=== PATIENT | female | born 1995 | race African-American/Black ===

== ENCOUNTER 2017-05-29 07:43 | Emergency (ER) | payer OTHER ==
[2017-05-29 09:03] LABS: INFLUENZA A AMPLIFICATION NEGATIVE (NEGATIVE); INFLUENZA B AMPLIFICATION NEGATIVE (NEGATIVE)
[2017-05-29 09:40] LABS: BASO # 0.1 10^3/uL (0.0-0.2); BASO % 0.6 % (0.0-1.0); EOS # 0.1 10^3/uL (0.0-0.50); EOS % 1.3 % (0.0-3.0); HEMATOCRIT 36.7 % (36.0-47.0); HEMOGLOBIN 12.6 g/dl (12.0-16.0); IMMATURE GRANULOCYTE # 0.1 10^3/uL (0-0); IMMATURE GRANULOCYTE % 0.7 % (0-0); LYMPH # 2.3 10^3/uL (1.5-6.5); LYMPH % 27.2 % (24.0-44.0); MEAN CORPUSCULAR HEMOGLOBIN 30.3 pg (27.0-33.0); MEAN CORPUSCULAR HGB CONC 34.3 g/dl (32.0-36.5); MEAN CORPUSCULAR VOLUME 88.2 fl (80.0-96.0); MONO # 0.6 10^3/uL (0.0-0.8); MONO % 6.5 % (0.0-5.0); NEUTROPHILS # 5.5 10^3/uL (1.8-7.7); NEUTROPHILS % 63.7 % (36.0-66.0); PLATELET COUNT, AUTOMATED 309 10^3/uL (150-450); RED BLOOD COUNT 4.16 10^6/uL (4.00-5.40); RED CELL DISTRIBUTION WIDTH 12.1 % (11.5-14.5); WHITE BLOOD COUNT 8.6 10^3/uL (4.0-10.0)
[2017-05-29 10:01] LABS: ANION GAP 7 MEQ/L (8-16); BLOOD UREA NITROGEN 12 MG/DL (7-18); CALCIUM LEVEL 8.2 MG/DL (8.5-10.1); CARBON DIOXIDE LEVEL 26 MEQ/L (21-32); CHLORIDE LEVEL 106 MEQ/L (98-107); CREATININE FOR GFR 0.74 MG/DL (0.55-1.30); GLUCOSE, FASTING 89 MG/DL (70-100); POTASSIUM SERUM 3.9 MEQ/L (3.5-5.1); SODIUM LEVEL 139 MEQ/L (136-145)
== END 2017-05-29 10:48 | disposition home or self-care (01) ==
LOC: M ED 07:43
DX: J06.9 Acute upper respiratory infection, unspecified (principal); R55 Syncope and collapse; I45.10 Unspecified right bundle-branch block; R04.0 Epistaxis; F41.0 Panic disorder [episodic paroxysmal anxiety]
CPT/HCPCS: 71046

== ENCOUNTER 2017-08-22 11:41 | Emergency (ER) | payer OTHER ==
[2017-08-22] MEDS: NS 1,000 ML IV ×2 (11:50→12:14)
[2017-08-22 12:57] LABS: BASO % 0.5 % (0.0-1.0); EOS # 0.1 10^3/uL (0.0-0.50); EOS % 1.9 % (0.0-3.0); HEMOGLOBIN 11.5 g/dl (12.0-15.5); IMMATURE GRANULOCYTE % 0.3 % (0-3.0); LYMPH # 2.8 10^3/uL (1.5-6.5); LYMPH % 38.9 % (24.0-44.0); MEAN CORPUSCULAR HEMOGLOBIN 30.8 pg (27.0-33.0); MEAN CORPUSCULAR HGB CONC 34.8 g/dl (32.0-36.5); MEAN CORPUSCULAR VOLUME 88.5 fl (80.0-96.0); MONO # 0.7 10^3/uL (0.0-0.8); MONO % 10.1 % (0.0-5.0); NEUTROPHILS # 3.5 10^3/uL (1.8-7.7); NEUTROPHILS % 48.3 % (36.0-66.0); PLATELET COUNT, AUTOMATED 215 10^3/uL (150-450); RED BLOOD COUNT 3.73 10^6/uL (4.00-5.40); RED CELL DISTRIBUTION WIDTH 12.3 % (11.5-14.5); WHITE BLOOD COUNT 7.3 10^3/uL (4.0-10.0)
[2017-08-22 13:19] LABS: CONTROL LINE HCG INT CTR LINE PRESENT; HCG, SERUM QUALITATIVE NEGATIVE (NEGATIVE)
[2017-08-22 13:24] LABS: ANION GAP 5 MEQ/L (8-16); BLOOD UREA NITROGEN 14 MG/DL (7-18); CALCIUM LEVEL 8.2 MG/DL (8.5-10.1); CARBON DIOXIDE LEVEL 26 MEQ/L (21-32); CHLORIDE LEVEL 111 MEQ/L (98-107); GLUCOSE, FASTING 95 MG/DL (70-100); POTASSIUM SERUM 3.5 MEQ/L (3.5-5.1); SODIUM LEVEL 142 MEQ/L (136-145)
[2017-08-22 13:27] LABS: LACTIC ACID SEPSIS PROTOCOL 1.3 MMOL/L (0.4-2.0)
[2017-08-22 13:58] LABS: ETHYL ALCOHOL (ETHANOL) < 0.003 % (0.000-0.010)
[2017-08-22 14:51] LABS: APPEARANCE, URINE HAZY (CLEAR); BACTERIA, URINE AUTO NEGATIVE (NEGATIVE); BILIRUBIN, URINE AUTO NEGATIVE (NEGATIVE); BLOOD, URINE BLOOD NEGATIVE (NEGATIVE); COLOR, URINE YELLOW (YELLOW); GLUCOSE, URINE (UA) AUTO NEGATIVE (NEGATIVE); KETONE, URINE AUTO NEGATIVE (NEGATIVE); LEUKOCYTE ESTERASE, URINE AUTO NEGATIVE (NEGATIVE); MUCUS, URINE SMALL (NEGATIVE); NITRITE, URINE AUTO NEGATIVE (NEGATIVE); PROTEIN, URINE AUTO NEGATIVE (NEGATIVE); RBC, URINE AUTO 1 /HPF (0-3); SPECIFIC GRAVITY URINE AUTO 1.017 (1.002-1.035); SQUAMOUS EPITHELIAL CELL UR AU 3 /HPF (0-6); UROBILINOGEN, URINE AUTO 0.2 mg/dL (0.0-2.0); WBC, URINE AUTO 0 /HPF (0-3)
[2017-08-22 14:53] LABS: AMPHETAMINES LEVEL URINE NEGATIVE (NEGATIVE); BARBITURATES URINE NEGATIVE (NEGATIVE); BENZODIAZEPINES URINE POSITIVE (NEGATIVE); CANNABINOIDS URINE NEGATIVE (NEGATIVE); COCAINE METABOLITE URINE NEGATIVE (NEGATIVE); METHADONE URINE NEGATIVE (NEGATIVE); OPIATES URINE NEGATIVE (NEGATIVE); PHENCYCLIDINE URINE NEGATIVE (NEGATIVE)
== END 2017-08-22 15:23 | disposition home or self-care (01) ==
LOC: M ED 11:41
DX: R56.9 Unspecified convulsions (principal); R55 Syncope and collapse; Z88.6 Allergy status to analgesic agent; Z88.5 Allergy status to narcotic agent
CPT/HCPCS: 70450

== ENCOUNTER 2017-09-19 01:29 | Emergency (ER) | payer OTHER ==
[2017-09-19 02:12] LABS: BASO # 0.1 10^3/uL (0.0-0.2); BASO % 0.7 % (0.0-1.0); EOS # 0.3 10^3/uL (0.0-0.50); EOS % 3.5 % (0.0-3.0); HEMATOCRIT 35.3 % (36.0-47.0); HEMOGLOBIN 12.3 g/dl (12.0-15.5); IMMATURE GRANULOCYTE % 0.3 % (0-3.0); LYMPH # 3.2 10^3/uL (1.5-6.5); LYMPH % 36.6 % (24.0-44.0); MEAN CORPUSCULAR HEMOGLOBIN 30.2 pg (27.0-33.0); MEAN CORPUSCULAR HGB CONC 34.8 g/dl (32.0-36.5); MEAN CORPUSCULAR VOLUME 86.7 fl (80.0-96.0); MONO # 0.8 10^3/uL (0.0-0.8); MONO % 8.7 % (0.0-5.0); NEUTROPHILS # 4.4 10^3/uL (1.8-7.7); NEUTROPHILS % 50.2 % (36.0-66.0); PLATELET COUNT, AUTOMATED 250 10^3/uL (150-450); RED BLOOD COUNT 4.07 10^6/uL (4.00-5.40); WHITE BLOOD COUNT 8.8 10^3/uL (4.0-10.0)
[2017-09-19 02:46] LABS: ANION GAP 5 MEQ/L (8-16); BLOOD UREA NITROGEN 14 MG/DL (7-18); CALCIUM LEVEL 8.7 MG/DL (8.5-10.1); CARBON DIOXIDE LEVEL 26 MEQ/L (21-32); CHLORIDE LEVEL 108 MEQ/L (98-107); CREATININE FOR GFR 0.87 MG/DL (0.55-1.30); FREE T4 0.95 NG/DL (0.78-1.33); GLUCOSE, FASTING 97 MG/DL (70-100); POTASSIUM SERUM 3.6 MEQ/L (3.5-5.1); SODIUM LEVEL 139 MEQ/L (136-145)
[2017-09-19 06:02] LABS: CONTROL LINE HCG INT CTR LINE PRESENT; HCG, SERUM QUALITATIVE NEGATIVE (NEGATIVE)
[2017-09-19 06:11] LABS: KETONE, URINE AUTO RFX NEGATIVE (NEGATIVE); LEUKOCYTE ESTERASE UR AUTO RFX NEGATIVE (NEGATIVE); NITRITE, URINE AUTO RFX NEGATIVE (NEGATIVE); RBC, URINE AUTO RFX 3 /HPF (0-3); SPECIFIC GRAVITY UR AUTO RFX 1.019 (1.002-1.035); SQUAM EPITHELIAL CELL UR AURFX 6 /HPF (0-6); WBC, URINE AUTO RFX 1 /HPF (0-3)
[2017-09-19 06:34] LABS: AMPHETAMINES LEVEL URINE NEGATIVE (NEGATIVE); BARBITURATES URINE NEGATIVE (NEGATIVE); BENZODIAZEPINES URINE NEGATIVE (NEGATIVE); CANNABINOIDS URINE NEGATIVE (NEGATIVE); COCAINE METABOLITE URINE NEGATIVE (NEGATIVE); METHADONE URINE NEGATIVE (NEGATIVE); OPIATES URINE NEGATIVE (NEGATIVE); PHENCYCLIDINE URINE NEGATIVE (NEGATIVE)
== END 2017-09-19 07:45 | disposition home or self-care (01) ==
LOC: M ED 01:29
DX: R51 Headache (principal); R56.9 Unspecified convulsions; Z88.5 Allergy status to narcotic agent; Z88.8 Allergy status to other drugs, medicaments and biological substances
CPT/HCPCS: 71046

== ENCOUNTER 2017-10-21 19:00 | Emergency (ER) | payer OTHER ==
[2017-10-21] MEDS: NS 1,000 ML IV (20:26)
[2017-10-21] MEDS: KETOROLAC 30 MG/ML VIAL (J1885) IV (20:35)
[2017-10-21 20:39] LABS: BASO # 0.1 10^3/uL (0.0-0.2); BASO % 0.5 % (0.0-1.0); EOS # 0.1 10^3/uL (0.0-0.50); EOS % 1.5 % (0.0-3.0); HEMATOCRIT 37.2 % (36.0-47.0); HEMOGLOBIN 13.2 g/dl (12.0-15.5); IMMATURE GRANULOCYTE % 0.4 % (0-3.0); LYMPH # 2.5 10^3/uL (1.5-6.5); LYMPH % 26.7 % (24.0-44.0); MEAN CORPUSCULAR HEMOGLOBIN 30.6 pg (27.0-33.0); MEAN CORPUSCULAR HGB CONC 35.5 g/dl (32.0-36.5); MEAN CORPUSCULAR VOLUME 86.1 fl (80.0-96.0); MONO # 0.7 10^3/uL (0.0-0.8); MONO % 7.1 % (0.0-5.0); NEUTROPHILS % 63.8 % (36.0-66.0); PLATELET COUNT, AUTOMATED 269 10^3/uL (150-450); RED BLOOD COUNT 4.32 10^6/uL (4.00-5.40); RED CELL DISTRIBUTION WIDTH 12.4 % (11.5-14.5); WHITE BLOOD COUNT 9.4 10^3/uL (4.0-10.0)
[2017-10-21 21:04] LABS: ANION GAP 6 MEQ/L (8-16); BLOOD UREA NITROGEN 12 MG/DL (7-18); CALCIUM LEVEL 8.5 MG/DL (8.5-10.1); CARBON DIOXIDE LEVEL 26 MEQ/L (21-32); CHLORIDE LEVEL 106 MEQ/L (98-107); CREATININE FOR GFR 0.84 MG/DL (0.55-1.30); GLUCOSE, FASTING 88 MG/DL (70-100); POTASSIUM SERUM 4.1 MEQ/L (3.5-5.1); SODIUM LEVEL 138 MEQ/L (136-145)
== END 2017-10-21 21:55 | disposition home or self-care (01) ==
LOC: M ED 19:00
DX: G40.909 Epilepsy, unspecified, not intractable, without status epilepticus (principal); Z79.899 Other long term (current) drug therapy; Z88.5 Allergy status to narcotic agent; Z88.6 Allergy status to analgesic agent
CPT/HCPCS: J1885

== ENCOUNTER 2017-12-20 07:29 | Emergency (ER) | payer OTHER | END 2017-12-20 09:00 | disposition home or self-care (01) | LOC: M ED 07:29 | DX: F44.5 Conversion disorder with seizures or convulsions (principal); Z76.5 Malingerer [conscious simulation]; G43.909 Migraine, unspecified, not intractable, without status migrainosus; Z79.899 Other long term (current) drug therapy; Z88.5 Allergy status to narcotic agent; Z88.8 Allergy status to other drugs, medicaments and biological substances | CPT/HCPCS: 99284 ==

== ENCOUNTER 2018-01-08 10:30 | Emergency (ER) | payer OTHER ==
[2018-01-08 12:42] LABS: HEMATOCRIT 36.6 % (36.0-47.0); HEMOGLOBIN 12.6 g/dl (12.0-15.5); MEAN CORPUSCULAR HEMOGLOBIN 30.1 pg (27.0-33.0); MEAN CORPUSCULAR HGB CONC 34.4 g/dl (32.0-36.5); MEAN CORPUSCULAR VOLUME 87.6 fl (80.0-96.0); PLATELET COUNT, AUTOMATED 269 10^3/uL (150-450); RED BLOOD COUNT 4.18 10^6/uL (4.00-5.40); RED CELL DISTRIBUTION WIDTH 12.1 % (11.5-14.5); WHITE BLOOD COUNT 5.8 10^3/uL (4.0-10.0)
[2018-01-08 13:02] LABS: BLOOD UREA NITROGEN 14 MG/DL (7-18); CALCIUM LEVEL 8.7 MG/DL (8.5-10.1); CHLORIDE LEVEL 108 MEQ/L (98-107); CREATININE FOR GFR 0.87 MG/DL (0.55-1.30); HCG, SERUM QUANTITATIVE < 1.0 MIU/ML; POTASSIUM SERUM 3.8 MEQ/L (3.5-5.1); SODIUM LEVEL 140 MEQ/L (136-145)
[2018-01-08 13:05] LABS: D-DIMER QUANT < 270.0 ng/ml (<500)
[2018-01-08 15:14] LABS: CARBON DIOXIDE LEVEL 23 MEQ/L (21-32)
[2018-01-08 15:15] LABS: ANION GAP 9 MEQ/L (8-16)
[2018-01-08 17:32] LABS: GLUCOSE, FASTING 88 MG/DL (70-100)
[2018-01-09 14:12] LABS: TOPIRAMATE LEVEL None Detected ug/mL (2.0-25.0)
== END 2018-01-08 15:24 | disposition home or self-care (01) ==
LOC: M ED 10:30
DX: R07.89 Other chest pain (principal); R25.8 Other abnormal involuntary movements; R56.9 Unspecified convulsions; G43.909 Migraine, unspecified, not intractable, without status migrainosus; Z79.899 Other long term (current) drug therapy
CPT/HCPCS: 71046

== ENCOUNTER 2018-02-13 12:39 | Emergency (ER) | payer OTHER ==
[2018-02-13 13:53] LABS: BASO # 0.1 10^3/uL (0.0-0.2); BASO % 0.6 % (0.0-1.0); EOS # 0.1 10^3/uL (0.0-0.50); EOS % 1.1 % (0.0-3.0); HEMATOCRIT 35.7 % (36.0-47.0); HEMOGLOBIN 12.3 g/dl (12.0-15.5); IMMATURE GRANULOCYTE % 0.4 % (0-3.0); LYMPH # 2.9 10^3/uL (1.5-6.5); LYMPH % 34.5 % (24.0-44.0); MEAN CORPUSCULAR HEMOGLOBIN 30.9 pg (27.0-33.0); MEAN CORPUSCULAR HGB CONC 34.5 g/dl (32.0-36.5); MEAN CORPUSCULAR VOLUME 89.7 fl (80.0-96.0); MONO # 0.8 10^3/uL (0.0-0.8); MONO % 10.1 % (0.0-5.0); NEUTROPHILS # 4.5 10^3/uL (1.8-7.7); NEUTROPHILS % 53.3 % (36.0-66.0); PLATELET COUNT, AUTOMATED 239 10^3/uL (150-450); RED BLOOD COUNT 3.98 10^6/uL (4.00-5.40); RED CELL DISTRIBUTION WIDTH 12.2 % (11.5-14.5); WHITE BLOOD COUNT 8.3 10^3/uL (4.0-10.0)
[2018-02-13] MEDS: METOCLOPRAMIDE INJ 10MG/2ML VIAL (J2765) IV (13:59)
[2018-02-13] MEDS: NS 1,000 ML IV (13:59)
[2018-02-13] MEDS: diphenhydrAMINE INJ 50MG/ML VIAL (J1200) IV (13:59)
[2018-02-13 14:32] LABS: CONTROL LINE HCG INT CTR LINE PRESENT; HCG, SERUM QUALITATIVE NEGATIVE (NEGATIVE)
[2018-02-13 14:40] LABS: ANION GAP 8 MEQ/L (8-16); BLOOD UREA NITROGEN 11 MG/DL (7-18); CALCIUM LEVEL 6.1 MG/DL (8.5-10.1); CARBON DIOXIDE LEVEL 21 MEQ/L (21-32); CHLORIDE LEVEL 118 MEQ/L (98-107); CREATININE FOR GFR 0.55 MG/DL (0.55-1.30); GLUCOSE, FASTING 60 MG/DL (70-100); POTASSIUM SERUM 2.9 MEQ/L (3.5-5.1); SODIUM LEVEL 147 MEQ/L (136-145); THYROID STIMULATING HORMONE 0.692 uIU/ML (0.463-3.98)
[2018-02-13 14:42] LABS: D-DIMER QUANT < 270.0 ng/ml (<500)
[2018-02-13] MEDS: POTASSIUM CHLORIDE 10 MEQ SR TABLET PO (14:50)
[2018-02-13 15:53] LABS: IONIZED CALCIUM 4.4 MG/DL (4.5-5.3)
[2018-02-13 16:19] LABS: ANION GAP 8 MEQ/L (8-16); BLOOD UREA NITROGEN 13 MG/DL (7-18); CALCIUM LEVEL 8.5 MG/DL (8.5-10.1); CARBON DIOXIDE LEVEL 24 MEQ/L (21-32); CHLORIDE LEVEL 108 MEQ/L (98-107); CREATININE FOR GFR 0.82 MG/DL (0.55-1.30); GLUCOSE, FASTING 73 MG/DL (70-100); POTASSIUM SERUM 3.7 MEQ/L (3.5-5.1); SODIUM LEVEL 140 MEQ/L (136-145)
[2018-02-17 16:17] LABS: METANEPHRINE PLASMA 45 pg/mL (0-62); NORMETANEPHRINE PLASMA 114 pg/mL (0-145)
== END 2018-02-13 17:29 | disposition home or self-care (01) ==
LOC: M ED 12:39
DX: R55 Syncope and collapse (principal); R07.9 Chest pain, unspecified; R51 Headache; I49.9 Cardiac arrhythmia, unspecified; G43.909 Migraine, unspecified, not intractable, without status migrainosus; R56.9 Unspecified convulsions; Z88.6 Allergy status to analgesic agent; Z88.5 Allergy status to narcotic agent; Z79.899 Other long term (current) drug therapy; Z79.3 Long term (current) use of hormonal contraceptives
CPT/HCPCS: J1200

== ENCOUNTER 2018-05-28 11:07 | Emergency (ER) | payer OTHER ==
[~2018-05-28] VITALS: Ht 170.2 cm; Wt 70.0 kg
[~2018-05-28 11:07] MED LIST: APTI1TAB2 PO; CYCL10TA; FLON1SPR; IBUP-1114 PO; MAXA10TA15 SL; TOPI50TA9 PO; [UNRECOGNIZED DRUG - CODE]
[2018-05-28] MEDS ORDERED: HYDR1CAP25 (11:24)
[2018-05-28] MEDS ORDERED: ZONI25CA2 (11:24)
[2018-05-28] MEDS ORDERED: FLUO20CA19 (11:24)
[2018-05-28] MEDS ORDERED: ASPI81CH30 (11:24)
[2018-05-28 11:49] LABS: BASO # 0.1 10^3/uL (0.0-0.2); BASO % 0.8 % (0.0-1.0); EOS # 0.2 10^3/uL (0.0-0.50); EOS % 3.6 % (0.0-3.0); HEMATOCRIT 37.1 % (36.0-47.0); HEMOGLOBIN 12.6 g/dl (12.0-15.5); LYMPH # 2.3 10^3/uL (1.5-6.5); LYMPH % 37.1 % (24.0-44.0); MEAN CORPUSCULAR HEMOGLOBIN 30.7 pg (27.0-33.0); MEAN CORPUSCULAR VOLUME 90.5 fl (80.0-96.0); MONO # 0.6 10^3/uL (0.0-0.8); MONO % 9.7 % (0.0-5.0); NEUTROPHILS % 48.3 % (36.0-66.0); PLATELET COUNT, AUTOMATED 256 10^3/uL (150-450); WHITE BLOOD COUNT 6.2 10^3/uL (4.0-10.0)
[2018-05-28 12:11] LABS: BLOOD UREA NITROGEN 13 MG/DL (7-18); CALCIUM LEVEL 8.7 MG/DL (8.5-10.1); CARBON DIOXIDE LEVEL 26 MEQ/L (21-32); CHLORIDE LEVEL 108 MEQ/L (98-107); CREATININE FOR GFR 1.04 MG/DL (0.55-1.30); GLOMERULAR FILTRATION RATE > 60.0 (>60); GLUCOSE, FASTING 81 MG/DL (70-100); POTASSIUM SERUM 3.9 MEQ/L (3.5-5.1); SODIUM LEVEL 142 MEQ/L (136-145)
[2018-05-28 12:12] LABS: HCG, SERUM QUALITATIVE NEGATIVE (NEGATIVE)
[2018-05-28] MEDS ORDERED: NS 1,000 ML IV ONE (13:15)
[2018-05-28 15:58] VITALS: BP 132/62
--- NOTE | 2018-05-29 20:58 | ECGEPIP ---
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
[2018-05-31 08:07] LABS: TOPIRAMATE LEVEL None Detected ug/mL (2.0-25.0)
== END 2018-05-28 16:00 | disposition home or self-care (01) ==
LOC: EDBD 11:07 → M ED 11:07
DX: R56.9 Unspecified convulsions (principal); Z79.82 Long term (current) use of aspirin; Z79.899 Other long term (current) drug therapy; Z88.6 Allergy status to analgesic agent; Z88.5 Allergy status to narcotic agent

== ENCOUNTER 2018-06-08 22:32 | Emergency (ER) | payer OTHER ==
[~2018-06-08] VITALS: Ht 175.3 cm; Wt 70.5 kg
[~2018-06-08 22:32] MED LIST changes: +ASPI81CH30; +FLUO20CA19; +HYDR1CAP25; +ZONI25CA2
[2018-06-08 23:08] LABS: BASO # 0.1 10^3/uL (0.0-0.2); BASO % 0.7 % (0.0-1.0); EOS # 0.3 10^3/uL (0.0-0.50); EOS % 3.1 % (0.0-3.0); HEMATOCRIT 37.3 % (36.0-47.0); HEMOGLOBIN 12.7 g/dl (12.0-15.5); LYMPH # 2.8 10^3/uL (1.5-6.5); MEAN CORPUSCULAR HEMOGLOBIN 30.4 pg (27.0-33.0); MEAN CORPUSCULAR VOLUME 89.2 fl (80.0-96.0); MONO # 1.1 10^3/uL (0.0-0.8); MONO % 10.9 % (0.0-5.0); NEUTROPHILS # 5.5 10^3/uL (1.8-7.7); NEUTROPHILS % 55.9 % (36.0-66.0); PLATELET COUNT, AUTOMATED 336 10^3/uL (150-450); RED BLOOD COUNT 4.18 10^6/uL (4.00-5.40); WHITE BLOOD COUNT 9.7 10^3/uL (4.0-10.0)
[2018-06-08 23:30] LABS: ALBUMIN 3.6 GM/DL (3.2-5.2); ALT/SGPT 23 U/L (12-78); BILIRUBIN,TOTAL 0.2 MG/DL (0.2-1.0); BLOOD UREA NITROGEN 10 MG/DL (7-18); C REACTIVE PROTEIN QUANTITATIV 2.64 MG/DL (0.00-0.30); CALCIUM LEVEL 8.5 MG/DL (8.5-10.1); CARBON DIOXIDE LEVEL 25 MEQ/L (21-32); CHLORIDE LEVEL 107 MEQ/L (98-107); CREATININE FOR GFR 0.72 MG/DL (0.55-1.30); GLOMERULAR FILTRATION RATE > 60.0 (>60); GLUCOSE, FASTING 91 MG/DL (70-100); LIPASE 99 U/L (73-393); POTASSIUM SERUM 3.8 MEQ/L (3.5-5.1); SODIUM LEVEL 137 MEQ/L (136-145); TOTAL PROTEIN 7.9 GM/DL (6.4-8.2)
--- NOTE | 2018-06-08 23:42 | REPVR ---
EXAM: US Abdomen Limited, Right Upper Quadrant EXAM DATE/TIME: 06/08/2018 11:18 PM CLINICAL HISTORY: 23 years old, female; Pain; Abdominal pain; Epigastric; Additional info: Ruq pain TECHNIQUE: Real-time ultrasound of the abdomen with image documentation. Examination was focused on the right upper quadrant. COMPARISON: No relevant prior studies available. FINDINGS: Liver: Normal. No masses. Gallbladder: Contracted gallbladder with positive Xiong sign. No calculi demonstrated. Common bile duct: Common bile duct measures 1.7 mm. Pancreas: Visualized pancreas is unremarkable. Right kidney: Right kidney measures 10.9 x 5.2 x 4.2 cm. IMPRESSION: Contracted gallbladder with positive Xiong sign. No calculi demonstrated. Electronically signed by: James Michel On 06/08/2018 23:42:11 PM
[2018-06-08 23:46] LABS: APPEARANCE, URINE CLOUDY (CLEAR); BACTERIA, URINE AUTO 1+ (NEGATIVE); BILIRUBIN, URINE AUTO NEGATIVE (NEGATIVE); BLOOD, URINE BLOOD NEGATIVE (NEGATIVE); COLOR, URINE YELLOW (YELLOW); GLUCOSE, URINE (UA) AUTO NEGATIVE (NEGATIVE); KETONE, URINE AUTO NEGATIVE (NEGATIVE); LEUKOCYTE ESTERASE, URINE AUTO 3+ (NEGATIVE); MUCUS, URINE SMALL (NEGATIVE); NITRITE, URINE AUTO NEGATIVE (NEGATIVE); PROTEIN, URINE AUTO NEGATIVE (NEGATIVE); RBC, URINE AUTO 58 /HPF (0-3); SPECIFIC GRAVITY URINE AUTO 1.019 (1.002-1.035); SQUAMOUS EPITHELIAL CELL UR AU 37 /HPF (0-6); WBC, URINE AUTO 115 /HPF (0-3)
[2018-06-08] MEDS ORDERED: MACR100C43 PO (23:58)
[2018-06-08] MEDS ORDERED: KETO10TAB PO (23:58)
[2018-06-09] MEDS ORDERED: NITROFURANTOIN (MACROBID) 100 MG CAP PO ONE
[2018-06-09] MEDS ORDERED: KETOROLAC 30 MG/ML VIAL (J1885) IV ONE
[2018-06-09 00:12] VITALS: BP 119/61
== END 2018-06-09 00:21 | disposition home or self-care (01) ==
LOC: M ED 22:32
DX: N39.0 Urinary tract infection, site not specified (principal); R10.11 Right upper quadrant pain; R56.9 Unspecified convulsions; F32.9 Major depressive disorder, single episode, unspecified; Z79.82 Long term (current) use of aspirin; Z79.899 Other long term (current) drug therapy; Z88.8 Allergy status to other drugs, medicaments and biological substances; Z88.5 Allergy status to narcotic agent
CPT/HCPCS: 76705; 80053; 81001; 81025; 83690; 85025; 86140; 96374; 99284; J1885

== ENCOUNTER → 2018-06-27 | Outpatient (CLI) | payer OTHER ==
[~2018-06-27] MED LIST changes: +DOXY100C37 PO; +FLAG500T PO; -HYDR1CAP25; +HYDR1CAP25 PO; +KETO10TAB PO; +MACR100C43 PO; +PRAZ2CAP; +TRAZ-160 PO
--- NOTE | 2018-06-27 15:28 | REP ---
Focused left breast sonography: History: 23-year-old female with a 1.5 cm regular, firm, mobile mass noted at 3 o'clock in the left breast. No comparison imaging. Sonographic findings: The left breast is scanned at approximately 3 o'clock position in the area of patient's palpable abnormality. There is a solid macrolobulated hypoechoic nodule with somewhat heterogeneous echotexture and internal Doppler hyperemic flow. There are small cystic areas and possible tiny calcifications within the lesion. The lesion measures 21 x 20 x 20 mm. It is located 7.8 cm from the nipple. On several images, it appears taller than wide. There is enhanced through transmission. No acoustic shadowing. There is heterogeneous fibroglandular background echotexture. This may be a fibroadenoma however some of its features are suspicious. The patient's estimated lifetime breast cancer risk assessment score is 12.3% by Tyrer-Cuzick model. Impression: BI-RADS category 4 suspicious left breast imaging. Solid mass noted at the site of the palpable lump in the left breast. Histologic sampling is recommended. This could be accomplished with ultrasound guidance by ultrasound guided needle biopsy if desired. Alternatively, a palpation directed needle biopsy could be performed. Electronically Signed by Henri Arnett MD 06/27/2018 04:46 P
== END ==
LOC: M RAD 13:25
PROVIDERS: ATTEND Obstetrics & Gynecology
DX: N63.0 Unspecified lump in unspecified breast (principal)

== ENCOUNTER 2018-06-29 17:45 | Emergency (ER) | payer OTHER ==
[~2018-06-29] VITALS: Ht 170.2 cm; Wt 70.5 kg
[~2018-06-29 17:45] MED LIST changes: -DOXY100C37 PO; -FLAG500T PO; -PRAZ2CAP; -TRAZ-160 PO
[2018-06-29] MEDS ORDERED: NS 1,000 ML IV ONE ×2 (18:00→19:00)
[2018-06-29] MEDS: MORPHINE 2 MG/ML 1ML SYRINGE (J2270) IV PRN ×2 (18:17→19:43)
[2018-06-29 18:19] LABS: BASO # 0.1 10^3/uL (0.0-0.2); BASO % 0.5 % (0.0-1.0); EOS # 0.2 10^3/uL (0.0-0.50); EOS % 1.5 % (0.0-3.0); HEMATOCRIT 32.8 % (36.0-47.0); HEMOGLOBIN 11.3 g/dl (12.0-15.5); LYMPH # 3.4 10^3/uL (1.5-6.5); LYMPH % 30.2 % (24.0-44.0); MEAN CORPUSCULAR HEMOGLOBIN 29.7 pg (27.0-33.0); MEAN CORPUSCULAR HGB CONC 34.5 g/dl (32.0-36.5); MEAN CORPUSCULAR VOLUME 86.3 fl (80.0-96.0); MONO % 8.4 % (0.0-5.0); NEUTROPHILS # 6.6 10^3/uL (1.8-7.7); NEUTROPHILS % 58.7 % (36.0-66.0); PLATELET COUNT, AUTOMATED 463 10^3/uL (150-450); WHITE BLOOD COUNT 11.3 10^3/uL (4.0-10.0)
[2018-06-29 18:33] LABS: INR 1.06; PARTIAL THROMBOPLASTIN TIME 21.4 SECONDS (25.4-37.6); PROTHROMBIN TIME 13.9 SECONDS (12.1-14.4)
[2018-06-29] MEDS ORDERED: TRAZ-160 PO (18:41)
[2018-06-29] MEDS ORDERED: PRAZ2CAP (18:41)
[2018-06-29 18:42] LABS: HCG, SERUM QUALITATIVE NEGATIVE (NEGATIVE)
[2018-06-29 18:43] LABS: ALBUMIN 3.6 GM/DL (3.2-5.2); ALT/SGPT 22 U/L (12-78); BILIRUBIN,DIRECT < 0.1 MG/DL (0.0-0.2); BILIRUBIN,TOTAL 0.3 MG/DL (0.2-1.0); BLOOD UREA NITROGEN 12 MG/DL (7-18); CARBON DIOXIDE LEVEL 25 MEQ/L (21-32); CHLORIDE LEVEL 102 MEQ/L (98-107); CREATININE FOR GFR 0.93 MG/DL (0.55-1.30); GLOMERULAR FILTRATION RATE > 60.0 (>60); GLUCOSE, FASTING 97 MG/DL (70-100); LIPASE 73 U/L (73-393); POTASSIUM SERUM 3.5 MEQ/L (3.5-5.1); SODIUM LEVEL 137 MEQ/L (136-145); TOTAL PROTEIN 8.5 GM/DL (6.4-8.2)
[2018-06-29] MEDS ORDERED: ISOVUE-370 76% 100ML VIAL (Q9967) As Ordered ONE (18:50)
--- NOTE | 2018-06-29 19:17 | REP ---
Clinical: Acute abdominal pain. Technique: Axial contrast enhanced images from the lung bases to the pubic symphysis using 100 ml Isovue 370 intravenous contrast material with coronal and sagittal re-formations. Findings: Lung bases are clear. Visualized heart and pericardium normal. Liver, spleen, pancreas, gallbladder, bilateral adrenal glands and kidneys are normal. The enteric system is without obstruction or acute inflammatory process. Normal terminal ileum and appendix are identified in the right lower quadrant. Pelvis demonstrates normal bladder and uterus. Complex cystic changes to the bilateral adnexa (left greater than right) likely physiologic. No ascites. No free air. No adenopathy. Abdominal aorta and vasculature without aneurysm or dissection. Musculoskeletal structures are intact. Impression: 1. Complex cystic changes to the bilateral adnexa (left greater than right) is likely physiologic. 2. No further acute abdominopelvic pathology appreciated. Specifically, no ascites, focal inflammatory stranding, or adenopathy. Electronically Signed by Buzz Reagan MD 06/29/2018 07:09 P
[2018-06-29 22:00] VITALS: BP 127/72
--- NOTE | 2018-06-30 07:38 | ED PDOC ---
Post-Departure Follow-Up ft christiano chahal faxed formal report of ct abd/p for fu Becki Baird MD Jun 30, 2018 07:38
== END 2018-06-29 22:00 | disposition home or self-care (01) ==
LOC: EDBD 17:45 → EDSEX 17:45 → M ED 17:45
DX: G40.919 Epilepsy, unspecified, intractable, without status epilepticus (principal); R10.84 Generalized abdominal pain; F33.9 Major depressive disorder, recurrent, unspecified; Z79.899 Other long term (current) drug therapy; Z88.5 Allergy status to narcotic agent; Z88.8 Allergy status to other drugs, medicaments and biological substances
CPT/HCPCS: 74177; 80048; 80076; 83605; 83690; 84703; 85025; 85610; 85730; 93041; 96361; 96374; 96376; 99285; J2270; Q9967

== ENCOUNTER 2018-07-01 12:02 | Emergency (ER) | payer OTHER ==
[~2018-07-01] VITALS: Ht 170.2 cm; Wt 70.5 kg
[~2018-07-01 12:02] MED LIST changes: +PRAZ2CAP; +TRAZ-160 PO
[2018-07-01] MEDS ORDERED: KETOROLAC 30 MG/ML VIAL (J1885) IV ONE (12:45)
[2018-07-01] MEDS ORDERED: ONDANSETRON 4MG/2ML VIAL (J2405) IV ONE (12:45)
[2018-07-01 13:24] LABS: BASO % 0.4 % (0.0-1.0); EOS # 0.1 10^3/uL (0.0-0.50); EOS % 1.2 % (0.0-3.0); HEMATOCRIT 33.3 % (36.0-47.0); HEMOGLOBIN 11.1 g/dl (12.0-15.5); LYMPH % 19.8 % (24.0-44.0); MEAN CORPUSCULAR HEMOGLOBIN 29.1 pg (27.0-33.0); MEAN CORPUSCULAR HGB CONC 33.3 g/dl (32.0-36.5); MEAN CORPUSCULAR VOLUME 87.2 fl (80.0-96.0); MONO # 0.8 10^3/uL (0.0-0.8); MONO % 7.9 % (0.0-5.0); NEUTROPHILS % 70.3 % (36.0-66.0); PLATELET COUNT, AUTOMATED 446 10^3/uL (150-450); RED BLOOD COUNT 3.82 10^6/uL (4.00-5.40)
[2018-07-01 13:42] LABS: HCG, SERUM QUALITATIVE NEGATIVE (NEGATIVE)
[2018-07-01 13:50] LABS: BLOOD UREA NITROGEN 9 MG/DL (7-18); CALCIUM LEVEL 8.7 MG/DL (8.5-10.1); CARBON DIOXIDE LEVEL 27 MEQ/L (21-32); CHLORIDE LEVEL 104 MEQ/L (98-107); CREATININE FOR GFR 0.81 MG/DL (0.55-1.30); GLOMERULAR FILTRATION RATE > 60.0 (>60); GLUCOSE, FASTING 93 MG/DL (70-100); POTASSIUM SERUM 3.7 MEQ/L (3.5-5.1); SODIUM LEVEL 136 MEQ/L (136-145)
[2018-07-01] MEDS ORDERED: MORPHINE 4 MG/ML 1ML VIAL/SYRINGE (J2270) IV ONE (14:00)
--- NOTE | 2018-07-01 15:52 | REP ---
Clinical: Pelvic pain . Technique: Transabdominal pelvic ultrasound followed by transvaginal examination for better evaluation of the endometrium and adnexa with color Doppler evaluation of the ovaries. Findings: Bladder is unremarkable and measures 7.1 x 5.5 x 7.8 cm . Heterogeneous anteverted uterus measures 8.1 x 4.0 x 5.4 cm . The endometrial complex measures 8.9 mm thickness. No discrete uterine or endometrial abnormalities are appreciated. The bilateral ovaries are grossly normal in appearance and vascularity without torsion. The right ovary measures 3.3 x 3.2 x 4.2 cm; RI 0.71. The left ovary measures 3.3 x 2.0 x 3.2 cm; RI 0.64. The irregular complex vascular cystic and solid areas are identified along the bilateral adnexa measuring 4.2 x 4.2 x 4.7 cm on the right and 5.6 x 4.3 x 4.7 cm on the left suggesting the possibility of bilateral pyosalpinx and tubal ovarian abscess. Impression: 1. Normal uterus. 2. Complex hyperemic cystic and solid lesions in the bilateral adnexa concerning for bilateral pyosalpinx and tubal ovarian abscess. Electronically Signed by Buzz Reagan MD 07/01/2018 03:44 P
[2018-07-01] MEDS ORDERED: DOXY100C37 PO (17:38)
[2018-07-01] MEDS ORDERED: FLAG500T PO (17:38)
[2018-07-01] MEDS ORDERED: cefTRIAXone SOD 250 MG VIAL (J0696) IM ONE (17:45)
[2018-07-01] MEDS ORDERED: LIDOCAINE 1% SDV 5 ML VIAL DILUENT ONE (17:45)
[2018-07-01 18:27] VITALS: BP 131/59
[2018-07-01 18:37] LABS: CHLAMYDIA DNA AMPLIFICATION POSITIVE (NEGATIVE); GC DNA AMPLIFICATION NEGATIVE (NEGATIVE)
--- NOTE | 2018-07-03 17:00 | ED PDOC ---
Post-Departure Follow-Up ft drum ob and ft drum fp faxed formal report of pelvic us for fu Becki Baird MD Jul 03, 2018 17:00
== END 2018-07-01 18:50 | disposition home or self-care (01) ==
LOC: M ED 12:02
DX: N73.9 Female pelvic inflammatory disease, unspecified (principal); Z87.42 Personal history of other diseases of the female genital tract; Z87.19 Personal history of other diseases of the digestive system; Z86.69 Personal history of other diseases of the nervous system and sense organs; Z86.19 Personal history of other infectious and parasitic diseases; Z88.8 Allergy status to other drugs, medicaments and biological substances; Z88.5 Allergy status to narcotic agent
CPT/HCPCS: 76830; 76856; 80048; 81025; 84703; 85025; 87210; 87491; 87591; 93976; 96372; 96374; 96375; 99284; J0696; J1885; J2270; J2405

== ENCOUNTER 2018-12-10 16:25 | Emergency (ER) | payer OTHER ==
[~2018-12-10] VITALS: Ht 167.6 cm; Wt 82.3 kg
[~2018-12-10 16:25] MED LIST changes: -ASPI81CH30; +DOXY100C37 PO; +FLAG500T PO; +GOOD81CH2; -TRAZ-160 PO; +TRAZ-252 PO
--- NOTE | 2018-12-10 21:15 | REPVR ---
EXAM: US Pelvis Complete, Transabdominal and US Pelvis, Transvaginal and US Duplex Artery and Vein, Ovaries, Complete EXAM DATE/TIME: 12/10/2018 7:33 PM CLINICAL HISTORY: 23 years old, female; Pelvic pain; Additional info: Pelvic pain, HX pid TECHNIQUE: Imaging protocol: Real-time transabdominal and transvaginal pelvic ultrasound (complete) with image documentation. Transvaginal imaging was used for better evaluation of the endometrium and adnexa. Real-time duplex ultrasound scan of the arterial and venous flow of the ovaries with B-mode, color Doppler flow and spectral waveform analysis. COMPARISON: US PELVIC NON-OB COMPLETE 07/01/2018 2:45 PM FINDINGS: Uterus/cervix: Uterus is normal. The uterus measures 6.8 x 4.6 x 5.2 cm Endometrial stripe is normal, and measures 0.5 cm in thickness. Right adnexa: The right ovary measures 2.6 x 2.3 x 3.8 cm. No mass. Normal color flow and spectral doppler waveforms. No torsion. Left adnexa: The left ovary measures 2.5 x 4.2 x 1.9 cm. No mass. Normal color flow and spectral doppler waveforms. No torsion. Free fluid: Trace fluid in the cul-de-sac. Bladder: Normal. IMPRESSION: No acute findings. No torsion. Electronically signed by: Narcisa Henderson On 12/10/2018 21:15:17 PM
[2018-12-10 21:36] VITALS: BP 130/70
[2018-12-10] MEDS ORDERED: ACETAMINOPHEN 500 MG TAB PO ONE (21:45)
== END 2018-12-10 21:49 | disposition home or self-care (01) ==
LOC: EDBD 16:25 → M ED 16:25
DX: F32.9 Major depressive disorder, single episode, unspecified (principal); F41.9 Anxiety disorder, unspecified; Z79.899 Other long term (current) drug therapy; Z88.5 Allergy status to narcotic agent; Z88.6 Allergy status to analgesic agent; Z91.010 Allergy to peanuts

== ENCOUNTER 2018-12-14 11:11 | Emergency (ER) | payer OTHER ==
[~2018-12-14] VITALS: Ht 170.2 cm; Wt 72.7 kg
[2018-12-14 12:17] LABS: HEMATOCRIT 37.1 % (36.0-47.0); HEMOGLOBIN 12.7 g/dl (12.0-15.5); MEAN CORPUSCULAR HEMOGLOBIN 30.7 pg (27.0-33.0); MEAN CORPUSCULAR HGB CONC 34.2 g/dl (32.0-36.5); MEAN CORPUSCULAR VOLUME 89.6 fl (80.0-96.0); PLATELET COUNT, AUTOMATED 251 10^3/uL (150-450); RED BLOOD COUNT 4.14 10^6/uL (4.00-5.40); WHITE BLOOD COUNT 6.5 10^3/uL (4.0-10.0)
[2018-12-14 12:38] LABS: AMPHETAMINES LEVEL URINE NEGATIVE (NEGATIVE); BARBITURATES URINE NEGATIVE (NEGATIVE); BENZODIAZEPINES URINE NEGATIVE (NEGATIVE); CANNABINOIDS URINE NEGATIVE (NEGATIVE); COCAINE METABOLITE URINE NEGATIVE (NEGATIVE); METHADONE URINE NEGATIVE (NEGATIVE); OPIATES URINE NEGATIVE (NEGATIVE); PHENCYCLIDINE URINE NEGATIVE (NEGATIVE)
[2018-12-14 12:53] LABS: ACETAMINOPHEN LEVEL < 2.0 UG/ML (10.0-30.0); ALBUMIN 3.7 GM/DL (3.2-5.2); ALT/SGPT 66 U/L (12-78); BILIRUBIN,DIRECT < 0.1 MG/DL (0.0-0.2); BILIRUBIN,TOTAL 0.2 MG/DL (0.2-1.0); BLOOD UREA NITROGEN 16 MG/DL (7-18); CALCIUM LEVEL 8.7 MG/DL (8.5-10.1); CARBON DIOXIDE LEVEL 27 MEQ/L (21-32); CHLORIDE LEVEL 107 MEQ/L (98-107); CREATININE FOR GFR 0.89 MG/DL (0.55-1.30); ETHYL ALCOHOL (ETHANOL) < 0.003 % (0.000-0.010); GLOMERULAR FILTRATION RATE > 60.0 (>60); GLUCOSE, FASTING 102 MG/DL (70-100); SALICYLATE LEVEL < 1.7 MG/DL (5.0-30.0); SODIUM LEVEL 140 MEQ/L (136-145)
[2018-12-14 12:56] LABS: HCG, SERUM QUALITATIVE NEGATIVE (NEGATIVE)
[2018-12-14 13:55] VITALS: BP 127/62
== END 2018-12-14 13:58 | disposition home or self-care (01) ==
LOC: M ED 11:11 → EDBD 11:11 → M ED 13:58
DX: F33.9 Major depressive disorder, recurrent, unspecified (principal); F43.10 Post-traumatic stress disorder, unspecified; Z91.010 Allergy to peanuts; Z88.5 Allergy status to narcotic agent; Z88.8 Allergy status to other drugs, medicaments and biological substances
CPT/HCPCS: 36415; 80048; 80076; 80307; 84443; 84703; 85027; 99284; G0480

== ENCOUNTER 2019-01-11 10:43 | Emergency (ER) | payer OTHER ==
[~2019-01-11] VITALS: Ht 167.6 cm; Wt 70.5 kg
[2019-01-11] MEDS ORDERED: IBUP200T45 PO (10:52)
--- NOTE | 2019-01-11 14:46 | REP ---
Left rib series: Five views including PA chest. History: Trauma. Comparison study: January 08, 2018. Findings: PA chest radiograph shows no evidence of infiltrate or atelectasis or effusion. Mediastinum is not widened. There is no evidence of pneumothorax. Lung montesinos are clear. Multiple views of the left rib cage show no visible rib fracture or bony destructive lesion. Impression: Negative left rib radiographs. Electronically Signed by Henri Arnett MD 01/11/2019 02:38 P
[2019-01-11 14:48] VITALS: BP 138/71
--- NOTE | 2019-01-12 05:45 | ECGEPIP ---
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
== END 2019-01-11 14:49 | disposition home or self-care (01) ==
LOC: M ED 10:43 → EDBD 10:43 → M ED 14:49
DX: R07.89 Other chest pain (principal); Z91.010 Allergy to peanuts; Z86.69 Personal history of other diseases of the nervous system and sense organs; F43.10 Post-traumatic stress disorder, unspecified

== ENCOUNTER 2019-11-09 16:27 | Emergency (ER) | payer OTHER ==
[~2019-11-09] VITALS: Ht 167.6 cm; Wt 84.7 kg
[~2019-11-09 16:27] MED LIST changes: +CYCL-707; -CYCL10TA; -FLUO20CA19; +FLUO20CA22; +IBUP200T45 PO; +ZONI25CA13; -ZONI25CA2
[2019-11-09] MEDS ORDERED: FLUO20CA22 (16:40)
[2019-11-09] MEDS ORDERED: CIPR500T3 (16:40)
[2019-11-09 16:48] LABS: BASO % 0.6 % (0.0-1.0); EOS # 0.2 10^3/uL (0.0-0.5); EOS % 2.6 % (0.0-3.0); HEMATOCRIT 36.7 % (36.0-47.0); HEMOGLOBIN 12.5 g/dl (12.0-15.5); LYMPH # 2.5 10^3/uL (1.5-5.0); LYMPH % 35.1 % (24.0-44.0); MEAN CORPUSCULAR HGB CONC 34.1 g/dl (32.0-36.5); MEAN CORPUSCULAR VOLUME 88.2 fl (80.0-96.0); MONO # 0.6 10^3/uL (0.0-0.8); MONO % 8.3 % (0.0-5.0); NEUTROPHILS # 3.8 10^3/uL (1.5-8.5); PLATELET COUNT, AUTOMATED 248 10^3/uL (150-450); RED BLOOD COUNT 4.16 10^6/uL (4.00-5.40); WHITE BLOOD COUNT 7.2 10^3/uL (4.0-10.0)
[2019-11-09 17:00] VITALS: BP 137/66
--- NOTE | 2019-11-09 18:52 | ECGEPIP ---
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
== END 2019-11-09 18:00 | disposition home or self-care (01) ==
LOC: M ED 16:27 → EDBD 16:27 → M ED 18:00
DX: F44.5 Conversion disorder with seizures or convulsions (principal); F43.0 Acute stress reaction; Z79.83 Long term (current) use of bisphosphonates; Z79.899 Other long term (current) drug therapy; Z91.010 Allergy to peanuts

== ENCOUNTER → 2019-12-27 | Outpatient (CLI) | payer OTHER ==
[~2019-12-27] MED LIST changes: +CIPR500T3; +ISOVUE-370 76% 100ML VIAL As Ordered ONE
--- NOTE | 2020-01-13 13:39 | RO ---
DATE OF OPERATION: 12/27/2019 PREOPERATIVE DIAGNOSIS: Infertility. POSTOPERATIVE DIAGNOSIS: Infertility PROCEDURE: Hysterosalpingogram. SURGEON: Puneet Haley MD MATERIAL STRESS TESTER: ANESTHESIA: DESCRIPTION OF OPERATION: After adequate discussion and counseling about the risks and benefits of hysterosalpingogram, patient consented to the procedure. She had testing for hCG, which was negative, and she had prophylactic antibiotics because of previous pelvic infection. While on the table in the lithotomy position, sterile speculum examination was placed. Cervical os appeared retroverted, retroflexed uterus. The hysterosalpingogram catheter was placed through the endocervix after washing off the cervix and vagina with Hibiclens. With radiology in the room, dye was instituted into the uterus. The cavity seemed to be well formed. Both tubes dilated to the fimbriated end. The left tube spilled quite easily. The right tube there was stalling of the dye at the end. Could not actually establish whether there was spillage of dye at the right tube. Patient had minimal discomfort. The catheter and speculum were removed, and the patient will come to the office for discussion regarding further options. ANDRY
--- NOTE | 2020-01-27 07:57 | REP ---
HYSTEROSALPINGOGRAM HISTORY: Infertility. PROCEDURE: Endometrium is cannulated and contrast is injected by the referring mechanical estimator. Fluoroscopic guidance and spot filming is provided. Fluoroscopy time is 0.6 minutes. FINDINGS: Sequential spot filming during the contrast injection demonstrates a normal shaped homogeneous endometrial cavity. The isthmic and ampullary segment of the left fallopian tube opacifies quickly and there is documented peritoneal spill on the left. On the right, there is slower filling of the isthmic and ampullary segment. Ultimately, peritoneal spillage was observed, but preferential flow is seen from the left fallopian tube into the peritoneum. IMPRESSION: Asymmetric flow patency documented bilaterally. Sluggish filling of the right fallopian tube. Otherwise negative. MTDD
== END ==
LOC: M RADPRO 11:01
PROVIDERS: ATTEND Obstetrics & Gynecology
DX: N97.9 Female infertility, unspecified (principal)
CPT/HCPCS: 58340; 74740; Q9967

== ENCOUNTER 2020-06-21 13:25 | Emergency (ER) | payer OTHER ==
[~2020-06-21] VITALS: Ht 167.6 cm; Wt 86.4 kg
[~2020-06-21 13:25] MED LIST changes: -ISOVUE-370 76% 100ML VIAL As Ordered ONE
--- OUTSIDE RECORDS SUMMARY | 2020-06-21 13:29 | CCD ---
Author Author [facility] Organization [facility] Address Unknown Phone Unavailable Care Team Providers Care Vp [employer] Name Role Phone Hoyt, A Kristina PA Unavailable Hoyt, A Kristina PA Unavailable Hoyt, A Kristina PA Unavailable Hoyt, A Kristina PA Unavailable Hoyt, A Kristina PA Unavailable Hoyt, A Kristina PA Unavailable Hoyt, A Kristina PA Unavailable Hoyt, A Kristina PA Unavailable Hoyt, A Kristina PA Unavailable Hoyt, A Kristina PA Unavailable Hoyt, A Kristina PA Unavailable Hoyt, A Kristina PA Unavailable Hoyt, A Kristina PA Unavailable Hoyt, A Kristina PA Unavailable Hoyt, A Kristina PA Unavailable Hoyt, A Kristina PA Unavailable Hoyt, A Kristina PA Unavailable Hoyt, A Kristina PA Unavailable Hoyt, A Kristina PA Unavailable Hoyt, A Kristina PA Unavailable Hoyt, A Kristina PA Unavailable Hoyt, A Kristina PA Unavailable Hoyt, A Kristina PA Unavailable Hoyt, A Kristina PA Unavailable Hoyt, A Kristina PA Unavailable Hoyt, A Kristina PA Unavailable Hoyt, A Kristina PA Unavailable Hoyt, A Kristina PA Unavailable Hoyt, A Kristina PA Unavailable Hoyt, A Kristina PA Unavailable Hoyt, A Kristina PA Unavailable Hoyt, A Kristina PA Unavailable Hoyt, A Kristina PA Unavailable Hoyt, A Kristina PA Unavailable Hoyt, A Kristina PA Unavailable Hoyt, A Kristina PA Unavailable Hoyt, A Kristina PA Unavailable Hoyt, A Kristina PA Unavailable Hoyt, A Kristina PA Unavailable Hoyt, A Kristina PA Unavailable JaswinderKassie MD Unavailable Unavailable Jaswinder, Kassie Sen MD Unavailable Unavailable Jaswinder, Kassie Sen MD Unavailable Unavailable Jaswinder, Kassie Sen MD Unavailable Unavailable Jaswinder, Kassie Sen MD Unavailable Unavailable Jaswinder, Kassie Sen MD Unavailable Unavailable Jaswinder, Kassie Sen MD Unavailable Unavailable Jaswinder, Kassie Sen MD Unavailable Unavailable Jaswinder, Kassie Sen MD Unavailable Unavailable Jaswinder, Kassie Sen MD Unavailable Unavailable Jaswinder, Kassie Sen MD Unavailable Unavailable Jaswinder, Kassie Sne MD Unavailable Unavailable Jaswinder, Kassie Sen MD Unavailable Unavailable Jaswinder, Kassie Sen MD Unavailable Unavailable Jaswinder, Kassie Sen MD Unavailable Unavailable Jaswinder, Kassie Sen MD Unavailable Unavailable JaswinderKassie MD Unavailable Unavailable Jaswinder, Kassie Sen MD Unavailable Unavailable Jaswinder, Kassie Sen MD Unavailable Unavailable Jaswinder, Kassie Sen MD Unavailable Unavailable Jaswinder, Kassie Sen MD Unavailable Unavailable Jaswinder, Kassie Sen MD Unavailable Unavailable Jaswinder, Kassie Sen MD Unavailable Unavailable JaswinderKassie MD Unavailable Unavailable Jaswinder, Kassie Sen MD Unavailable Unavailable JaswinderKassie MD Unavailable Unavailable Jaswinder, Kassie Sen MD Unavailable Unavailable JaswinderKassie MD Unavailable Unavailable JaswinderKassie MD Unavailable Unavailable JaswinderKassie MD Unavailable Unavailable JaswinderKassie MD Unavailable Unavailable JaswinderKassie MD Unavailable Unavailable JaswinderKassie MD Unavailable Unavailable JaswinderKassie MD Unavailable Unavailable JaswinderKassie MD Unavailable Unavailable JaswinderKassie MD Unavailable Unavailable JaswinderKassie MD Unavailable Unavailable JaswinderKassie MD Unavailable Unavailable JaswinderKassie MD Unavailable Unavailable JaswinderKassie MD Unavailable Unavailable JaswinderKassie MD Unavailable Unavailable Jaswinder, Kassie Sen MD Unavailable Unavailable Jaswinder, Kassie Sen MD Unavailable Unavailable Jaswinder, Kassie Sen MD Unavailable Unavailable JaswinderKassie MD Unavailable Unavailable JaswinderKassie MD Unavailable Unavailable JaswinderKassie MD Unavailable Unavailable JaswinderKassie MD Unavailable Unavailable JaswinderKassie MD Unavailable Unavailable Jaswinder, Kassie Sen MD Unavailable Unavailable Jaswinder, Kassie Francy MD Unavailable Unavailable Jaswinder, Kassie Sen MD Unavailable Unavailable Jaswinder, Kassie Sen MD Unavailable Unavailable Jaswinder, Kassiedemar Sen MD Unavailable Unavailable Jaswinder, Kassiedemar Sen MD Unavailable Unavailable Jaswinder, Kassie Francy MD Unavailable Unavailable Jaswinder, Kassie Francy MD Unavailable Unavailable Jaswinder, Kassie Francy MD Unavailable Unavailable Jaswinder, Kassie Francy MD Unavailable Unavailable Jaswinder, Kassie Francy MD Unavailable Unavailable Jaswinder, Kassie Francy MD Unavailable Unavailable Jaswinder, Kassie Francy MD Unavailable Unavailable Jaswinder, Kassie Francy MD Unavailable Unavailable Jaswinder, Kassie Francy MD Unavailable Unavailable Jaswinder, Kassie Francy MD Unavailable Unavailable Jaswinder, Kassiedemar Sen MD Unavailable Unavailable Jaswinder, Kassiedemar Sen MD Unavailable Unavailable Jaswinder, Kassiedemar Sen MD Unavailable Unavailable Jaswinder, Kassie Sen MD Unavailable Unavailable Jaswinder, Kassie Sen MD Unavailable Unavailable Jaswinder, Kassie Sen MD Unavailable Unavailable Re-disclosure Warning The records that you are about to access may contain information from federally-assisted alcohol or drug abuse programs. If such information is present, then the following federally mandated warning applies: This information has been disclosed to you from records protected by federal confidentiality rules (42 CFR part 2). The federal rules prohibit you from making any further disclosure of this information unless further disclosure is expressly permitted by the written consent of the person to whom it pertains or as otherwise permitted by 42 CFR part 2. A general authorization for the release of medical or other information is NOT sufficient for this purpose. The Federal rules restrict any use of the information to criminally investigate or prosecute any alcohol or drug abuse patient.The records that you are about to access may contain highly sensitive health information, the redisclosure of which is protected by Article 27-F of the [facility] Public Health law. If you continue you may have access to information: Regarding HIV / AIDS; Provided by facilities licensed or operated by the [facility] Office of Mental Health; or Provided by the [facility] Office for People With Developmental Disabilities. If such information is present, then the following [facility] mandated warning applies: This information has been disclosed to you from confidential records which are protected by state law. State law prohibits you from making any further disclosure of this information without the specific written consent of the person to whom it pertains, or as otherwise permitted by law. Any unauthorized further disclosure in violation of state law may result in a fine or half-way sentence or both. A general authorization for the release of medical or other information is NOT sufficient authorization for further disc losure. Allergies and Adverse Reactions Type Description Substance Reaction Status Data Source(s ) Drug Class NO KNOWN ALLERGIES NO KNOWN ALLERGIES [facility] Encounters Encounter Providers Location Date Indications Data Source(s ) Outpatient Attender: Kristina SIMMONS 02/18/2020 12:00:00 AM [facility] Outpatient Attender: Francy Red MD [id number] 02/10/20 12:00:00 AM EDT - 02/10/2020 10:20:20 AM [facility] Outpatient Attender: Francy Red MDAdmitter: Francy Red MD 6 [id number] 01/31/2020 12:00:00 AM EDT - 01/31/2020 12:00:00 AM EDT Benign neoplasm of left breast [facility] Benign neoplasm of left breast Patient discharged. Outpatient Attender: Francy KEBEDEeferrer: Francy Red MD 01/31/2020 12:00:00 AM [facility] Outpatient Attender: Francy Red MD 01/31/2020 12:00:00 AM [facility] Outpatient Attender: Francy Red MD [id number] 01/30/2020 12:18:04 PM [facility] Outpatient Attender: Francy KEBEDEeferrer: Francy Red MD 01/09/2020 12:00:00 AM EDT Other abnormal and inconclusive findings on diagnostic imaging of [facility] Other abnormal and inconclusive findings on diagnostic imaging of breast Outpatient Attender: Francy Red MD [id number] 01/09/20 12:00:00 AM EDT - 01/09/2020 11:53:08 AM [facility] Outpatient Attender: Francy Red MDReferrer: Francy Red MD 12/12/2019 12:00:00 AM [facility] Outpatient Attender: Francy Red MD 12/12/2019 12:00:00 AM [facility] Medications Medication Brand Name Start Date Product Form Dose Route Admi nistrative Instructions Pharmacy Instructions Status Indications Reaction Description Data Source(s) ondansetron (ZOFRAN) injection 4 mg [id number] 01/31/2020 10:19:2 5 AM EDT 4 mg Intravenous active 4 mg, In travenous, Once PRN, Nausea, Vomiting, Starting Mon01/31/20 at 1019, For 1 dose, [facility] Medication administered onsite HYDROmorphone (DILAUDID) injection 0.5 mg [id number] 01/31/2020 10:19:25 AM EDT 0.5 mg Intravenous active 0.5 mg, Intravenous, Every 5 min PRN, Severe Pain (Pain Scale Score 7-10), Starting Mon01/31/20 at 1019, For 4 doses, [facility] Medication administered onsite fentaNYL (SUBLIMAZE) (PF) injection 25 mcg [id number] 01/31/2020 10:19:25 AM EDT 25 ug Intravenous active 25 m cg, Intravenous, Every 5 min PRN, Moderate Pain (Pain Scale Score 4-6), Starting Mon01/31/20 at 1019, For 4 doses, [facility] Medication administered onsite Cefazolin 2000 MG Injection ceFAZolin (ANCEF) IVPB 2 g in dextrose (premix) ceFAZolin (ANCEF) IVPB 2 g in dextrose (premix) 01/31/2020 07:45:00 AM EDT 2 g Intravenous completed 2 g, Int ravenous, Administer over 30 Minutes, Once, Mon01/31/20 at 0745, For 1 dose
mail caller to OR
Pre-op [facility] Medication administered onsite Calcium Chloride 0.0014 MEQ/ML / Potassi um Chloride 0.004 MEQ/ML / Sodium Chloride 0.103 MEQ/ML / Sodium Lactate 0.028 MEQ/ML Injectable Solution lactated ringers infusion lactated ringers infusion 01/31/2020 07:45:00 AM EDT 100 mL/h Intravenous active at 100 m L/hr, Intravenous, Continuous, Starting Mon01/31/20 at 0745, For 30 days, Pre-op [facility] Medication administered onsite zonisamide 25 MG Oral Capsule zonisamide (ZONEGRAN) 25 MG capsule zonisamide (ZONEGRAN) 25 MG capsule 25 mg Oral aborted Take 25 mg by mouth daily [facility] Insurance Providers Payer name Policy type / Coverage type Policy ID Covered republican ID Covered republican's relationship to schaeffer Policy Schaeffer Plan Information [facility] [id number] [facility] [id number] 'S ADMINISTRATION [id number] SP [id number] U [id number] Self [id number] U [id number] Self [id number] U [id number] Self [id number] U [id number] Self [id number] [facility] DUTY [id number] SP [id number] [facility] WPS [id number] S [id number] [facility] REG O [id number] S [id number] U [id number] Self [id number] SELF PAY SP Problems, Conditions, and Diagnoses Code Display Name Description Problem Type Effective Dates Data Source(s) D24.2 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 Diagnosis 01/31/2020 07:26:00 AM [facility] Juvenile fibroadenoma, 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] Juvenile fib roadenoma, left [D24.2] Diagnosis 01/31/2020 07:26:00 AM [facility] R92.8 Other abnormal and inconclusive findings on diagnostic imaging of breast Other abnormal and inconclusive findings on diagnostic imaging of breast Diagnosis 01/09/2020 10:30:00 AM [facility] Surgeries/Procedures Procedure Description Date Indications Data Source(s) [facility] 01/31/2020 7:51 AM EDT 01/31/2020 07:51:00 AM [facility] DO NOT USE PRIOR TO 08/30/2015 US BREAST INCLUDING AXILL A LIMITED LEFT 53474 DO NOT USE PRIOR TO 08/30/2015 US BREAST INCLUDING AXILLA LIMITED LEFT 59664 STAT 01/09/2020 11:03 AM EDT Abnormal finding on radiological examination of breast 01/09/2020 11:03:07 AM EDT Abnormal finding on radiological examination of breast [facility] Abnormal finding on radiological examina tion of breast Results ID Date Data Source [id number] 02/10/2020 10:20:43 AM [facility] Name Value Range Interpretation Code Description Data Kia rce(s) Supporting Document(s) Progress Note [facility] LFFKNe5dOyJJCfFd28/ADCmhNZObj0NkCVwlQDa8CPvmVFMwH2TtWYK5aG1lIGY7ZOvVFbUfNmVrUXGd lbm [file] ICAgICAgICAgICAgICAgICAgICAgICAgICAgICAgICAgICAgICAgICAgICAgICAgICAgICAgICAgICAg ICAgICAgICAgICAgICAgICAgICAgICAgICAgICAgIC AgDQogICAgICAgICAgICAgICAgICAgICAgICAgICAgICAgICAgICAgICAgICAgICAgICAgICAgICAgIC AgICAgICAgICAgICAgICAgICAgICAgICAgICAgICAgICAgICAgICAgICAgDQogICAgICAgICAgICAgIC AgICAgICAgICAgICAgICAgICAgICAgICAgICAgICAg ICAgICAgICAgICAgICAgICAgICAgICAgICAgICAgICAgICAgICAgICAgICAgICAgICAgICAgDQogICAg ICAgICAgICAgICAgICAgICAgICAgICAgICAgICAgICAgICAgICAgICAgICAgICAgICAgICAgICAgICAg ICAgICAgICAgICAgICAgICAgICAgICAgICAgICAgIC AgICAgDQogICAgICAgICAgICAgICAgICAgICAgICAgICAgICAgICAgICAgICAgICAgICAgICAgICAgIC AgICAgICAgICAgICAgICAgICAgICAgICAgICAgICAgICAgICAgICAgICAgICAgDQogICAgICAgICAgIC AgICAgICAgICAgICAgICAgICAgICAgICAgICAgICAg ICAgICAgICAgICAgICAgICAgICAgICAgICAgICAgICAgICAgICAgICAgICAgICAgICAgICAgICAgDQog ICAgICAgICAgICAgICAgICAgICAgICAgICAgICAgICAgICAgICAgICAgICAgICAgICAgICAgICAgICAg ICAgICAgICAgICAgICAgICAgICAgICAgICAgICAgIC AgICAgICAgDQogICAgICAgICAgICAgICAgICAgICAgICAgICAgICAgICAgICAgICAgICAgICAgICAgIC AgICAgICAgICAgICAgICAgICAgICAgICAgICAgICAgICAgICAgICAgICAgICAgICAgDQogICAgICAgIC AgICAgICAgICAgICAgICAgICAgICAgICAgICAgICAg ICAgICAgICAgICAgICAgICAgICAgICAgICAgICAgICAgICAgICAgICAgICAgICAgICAgICAgICAgICAg DQogICAgICAgICAgICAgICAgICAgICAgICAgICAgICAgICAgICAgICAgICAgICAgICAgICAgICAgICAg ICAgICAgICAgICAgICAgICAgICAgICAgICAgICAgIC ZeHNKiJHTaJWYzHAk6B4qbSMNlMMApXD8qSRe2Bl5+RYgZRuNvNNT0aeVakL8AXX2tf4SrVDtzYAJnh5 MpLKs5HH1OLZJiLWakQW7CCSemsl5VEEXgLCVtgTQZo1cjVdXqEYS6MHUzZikwUL1EBCEoA2gzczXyKP UgMCBSIDcgMCBSIDkgMCBSIDExIDAgUiAxMyAwIFIg ZW0YGJHtI054hvDzQT3LIz2KWnXdXH7oom4PQmDtNDWbBrcTXbw5XCupJC8VmCXftZLaYRLcUNVPCvEh B0fuq5BpTjGyMXYPACpqZU4Fk4NojOTrWLz+Xz1UQY2sc1VlTRyfRVGqDA3fri6PYCiUGkTfJ5CdaKkl OCVbw7xwVVNbUI5ikBJuTSY0PK2kknbfTUypAB0iD9 HwA51jZW8KMHC2TUUkXaPjJlMrLcKwGMf4TTFaSK1uFCzhSP3GICC6NCjvOVKoSURmV5iRMmRzCJO7Ob LjuRgcQC7VCjMnG2FuzeMhlYQdJYMiBLBHNm3+KTpessIyWuwTFjOnUPSsm8SdLBl2SL2EIAUfUIztIA 6REAZerQ6mTNzwON0EDuIxDUPcIPORVbGeL84lyWZc NYy4Z4BqHzIvMVSmYrlxXMDzTQbbSdSqYANwHoJiMJzrCD3+ID4+WYlwJP9BEYwlqdPmBIWaJb7QOKGy YPRiXS9iVWGuPBUxS2C9fLogYENCBqBzQ5ngtwtgUH6hHWEaN279pAnyujFiZHQnPLXaFo4WSHByZWX0 JCDzrAVjNhqjZQWNBMtnDF0YsREmMNP9uB4eYHszRH DkBEVgO2eRHkCpjBcaYW09aCrepsWavZSlMLs+Mg4CQQ5um6BbKTt3leOoBQcpJXPnYRpqPQZnRXWcML HsBJQ9AYU4RJWBLoYoDVGxYXMgBXafWNOuLOQxwf8JWNJpUALuAoMqGAPcPEJbHNNxYWwbOWYrKBPfMN B0DGAfQZWuDM1SWzDkPFKeSZQyFWwyVRPkIAPkxc3V EOMePHBcSgm5MJNoVZBmUNKiTUlfKXXdDHK7DMhkDSPjPJPoTZ1JBlSwLLXuMTxqZGEhBLYeQJLscu2B KDGvTPOyGsMuEZUzNSHeFYZsHYslWQEoAOR3RRGdUKMlWIAiCT4YVaWoEVDvYBSoKkLqFMZiTNXzbl8W GANmKACdFsM9YYMnOVKaVCJyMJgfURDuCFNnOTD5FL HtASGjGD6HJuUoWGJuLBY7FSszNYZsQFWngf7JHTSpJVQfNKjtMwNnBWQrTADdTZivRSUqBVW5RjmnNJ GtAXHdWW4FMgEaVPUrGZB0NMMtWNKuQHYhyl3QSBAxRTIjIeW5TxIgNFDuJHOtUEhrVTCrTUM7VMXtDV BaSHUtGZ9EXbYcPAFbGPlyCiWeBUNtTIMpzk6NYHVj LWSgHRIjOiQqMEPeAWPwQRndYQCqPYA3LNRyIWXzFFLuBE9WDaMlYNQcLtJzFgtgRTUyYCAdys0RAZPi FODlEZX0GhXxKPIwNTRiNPzkNQVgHZIaWkA2RYCzUNSdIM3ZHjLyWEXwKuX6AgMkYWKvPHEmcw2WDRWr SHCePJitQhCgZFOsJVKqHIubCNThOZObNMS8KJOpLT LqSJ4TEsLeQSGpOaWlOSXlMFGjNDVeqc0CBZFjJYIdMeB0XUSwXNOkNNNgCMrhRUIjFOEwYTQpVWYxNF IaLK7WHgUcPVKgMsYuOqTzGKFxUQSxqo3JPACiNZGsAAY2MrYwNUTjCCOyTEv0fhBhaSLiBRj6OJ3PG6 DnpjBpGiECUv4Ic666QIIbRFVhBa2LI1kwOn8hMHHs AZOTXz8VDGz5EkA1BNOiRrdpHctmTyKkHEC5ZFF2P4QgJLSqWVQkMRB+UZueFGA3SJH7EZViYXUhFjGn Xop9IYpsSBSdOXZtQtRlHL6mPMDYHv2+YPmdtGGopJypNXDSPiF5OVHmKNchMHXOMl8S ID Date Data Source [id number] 02/03/2020 08:47:39 AM EDT [facility] Name Value Range Interpretation Code Description Data Kia rce(s) Supporting Document(s) Operative Note [facility] RVKZEs1fTpITUxOk12/LWTchTMSvl4OcDIjqVZw3RFzoBFFkQ1WiYHY1tK4jBRB5CIjYPzVlHcRuXCP4 lbm [file] AgICAgICAgICAgICAgICAgICAgICAgICAgICAgICAg GKSpTCGsOJPjAXWkSXToXECmKDLcZYNrZLYtYFLuFLAxAQKrONXtAQ4WYBUdZUShPZUoHKIzIFYzWHWa ICAgICAgICAgICAgICAgICAgICAgICAgICAgICAgICAgICAgICAgICAgICAgICAgICAgICAgICAgICAg YMXvVUUdWIEsQBXyVDLtRYSeGCZaWF2ZDBNkSAEfCV AgICAgICAgICAgICAgICAgICAgICAgICAgICAgICAgICAgICAgICAgICAgICAgICAgICAgICAgICAgIC IwUCAuDPAqULRyIYWkKRWdDPEtXWRfOPSeMATjOCKiTQ0BRBVyCINcEUEcFEGoOCNkGBSqZZTbIDVmGU AgICAgICAgICAgICAgICAgICAgICAgICAgICAgICAg TKCfAXLjYDCtAHXjAWMuGJRaVJSdMKCcBTYcHYRlVGBhKVWdOPAnIBOzUA1WRCBxSJNhXYKfVZTeGXUm ICAgICAgICAgICAgICAgICAgICAgICAgICAgICAgICAgICAgICAgICAgICAgICAgICAgICAgICAgICAg VGQyIFGkAGShUHGaCVPfWRKhJWQzGXVjAG1BIHLaJR AgICAgICAgICAgICAgICAgICAgICAgICAgICAgICAgICAgICAgICAgICAgICAgICAgICAgICAgICAgIC AjEVXnRWRfCXMfICRtXCQaCCKcYHDzASAiMBNuDIDtDOTuMM7NSJTbXSGwMLUiYESrMWIxGBWhITJxMP AgICAgICAgICAgICAgICAgICAgICAgICAgICAgICAg MIHmCNVaIOAeKAQfMDMkLEDxHUPwWGKjJMYoIOOyKSKoGZLoLBDtUBTaOOBoXR4YOVHwTIEbDCHdJKSj ICAgICAgICAgICAgICAgICAgICAgICAgICAgICAgICAgICAgICAgICAgICAgICAgICAgICAgICAgICAg VMQkGDHrSDVsBKMdZQXqOPTdEBTyAIMoXJTdGG8NSB AgICAgICAgICAgICAgICAgICAgICAgICAgICAgICAgICAgICAgICAgICAgICAgICAgICAgICAgICAgIC VwARWvNFFpJXLyBAGyOQRnQIHhFTDvQGHiNSTzDMKqOJTwUSUbQE6BKZEpSUNqBTAcXPLuINBlNBNqOH AgICAgICAgICAgICAgICAgICAgICAgICAgICAgICAg XHYhIXFkBSSkYNFaQAQdRAWzLFLoPDKpESSkQIGhSRUbOOYuQQShYIXeSLXsBRYiDB6ANJ34kIPuu1H6 JWTiRE5afqr/Ft1HGNwlcaYbjNCoEG1TIzXhNJ2jnk3FFwHeTV9ugn1PZWhVLyCuJ3Y9rJKrYOBhKRFA LfFaF22oPGwoIz01QJmwOPIrIeEjYNn7Bu1SQkSvP1 muCRFqBbE1QEWaKvJ7JLPcQaUwTPomFX5Nn3WibNQbSCd+Ok1OVY1id5IyDFdfXIBpPK3jav0GJMnWNv MtB4XmjiV0PYJmPDDfLd9ZJNLfCBXfhRVpTPBwKUAOXwVqN6OqhD20HNXWNz0+DQplbmRvYmoNCjIwID Saf5FvIUc6KX2PEUSxDTe5zQFoM9XptwX9cXBsBY7k aISsXkruSRNsdFDCrNpdbbVXwtAjdafpBGYiNENkMSKyEj7nCIHeREUlNkTvVBFMJK4IEKPvPFVsiCBu ZODaBTXTBX6ZYQsiVYZ1SOQgacPryCVqIIhvIL2EUNJerwWiPUlvXLKWWXx+Qc5VGL5or0AkMGsmSPDg LO4utz2HKCsTDfKkE5I0vKBqA5S3LYikGv7BCHSbJK QaLGbiMMFQIGcdDM7UYP8vfsA7FI9FcOWoKHLgOBHetMKaMTj3X43ytNFwDUbsHN1AVLC+Lavell+Pg0KIC GkIJHyGUNfIhApEYLGZeLbM9CiG4VMi3PaJ0ZoYP09nYyhumAwBFuiMS4IMX5nFCSjKYWRZL5LtQEduJ 1xlhMhQHCeZIYKJaThM09hyKRbFWQwVWP4QIYyNn7O UKDyS1IzkbKavDfuzsZjXLVzFQEBBE0XYXqulwPyhDYmbDxzUQ96yBciLS7NBf8MBuVvLV6twn7JmOSr Zo0RDDWpKc8LJKBpJHXoLINpUAU8ZGEhGtIqAHrkVOZvGBXbRZE6YKLrPZKtXG4QUaIgHZOjOLf2YEfh ORDoKQYhav4BQCAaNXXcRJB2MQEkHHMbNDXnALtiET DmQKIuIHI4JWRiSSOyEL6KDqYwAAMkSRXvFsFyZRImSJNcgg4HPMPmONNrIiBvAhWwZPYbOVUhSNnkJT OnEQK9SmjtCUKsPKPzPO6AMmIvZQXpQRL1DUjzLVWpWQKljk4YBKNsWXZtJDm4LxZwWROkFSBqTPsdHY GzPBC8MOUiLUTqJIIdMC5JUfRgLVBmZPMzRvYuEDUi MFIcdm1ADIDzTIOuHrV8BiUjXTGvLACpWFcjNREuAUV6Vik3GYJfJPRxTB3FFaGzYEWtKNf2HRPxFHBy NVWbos7YUFCuQYJtDBY0LSXoQQXpZPAkXSjxTOXmPMP2DeB2HPStQFNmZO6RRnPaBWHsSVa3DiVqUVYs ZLHjku8IFJQuQTVxJID3FBKcOOYwVSYdWZrfWKCoYU BqAXGdGGBsPXNgGX2RGzDuIHEyHBF1KzKxAJDzHVBiax5DLMEkYFNnIDYyDKYrATOdHSDcLYn7cuYtzO ZzRTe1JP3VG0MnxrAaTuDAVz0Zj410SNAzPNDrLy3BM5pkKb5qCDFvHYFYOy0LVBr7MXA3UsC6SWVkUH fnWFW1QXAhA8V0Imh2NgYgEQr8N7L+IDwxYTlmYTQ5 LWZ4ZsYqGDtqUjOlOzDlKIYsIBOzGHvyUh1sELVPUe7+LVvgtJBgnIdePJKLLgHiEtW2LGypHSEHLb5Z ID Date Data Source [id number] 01/31/2020 08:02:59 AM EDT [facility] Name Value Range Interpretation Code Description Data Kia rce(s) Supporting Document(s) Choriogonadotropin.beta subunit free [Units/volume] in Serum or Plasm a <5 [facility] (NOTE)Levels between 5 and 25 [IU]/L may indicate earlypregnancy and should be repeated after 48 hours. ID Date Data Source [id number] 02/06/2020 12:36:00 PM EDT [facility] Surgical Pathology ReportName: MARY ANN BUNNMRN: [id number] Number: [id number] Date: 01/31/2020 00:00Received Date: 01/31/2020 11:23Physician(s): JASWINDER,CORETTA,MD JASWINDER,CORETTA,MDSpecimen(s) ReceivedA: Left breast massClinical HistoryJuvenile fibroadenoma left. DiagnosisBREAST, LEFT, LUMPECTOMY: BENIGN FIBROEPITHELIAL LESION, COMPLETELYEXCISED. (See Microscopic Description.)Annmarie Segal MD;Resident PathologistElectronically Signed By Cate Carty M.D., Attending [id number]/8/2020 12:36:55Processed at [facility] at [facility], [address] [place] [address]. The attending pathologist named aboveattests that he/she has personally reviewed the relevant preparation(s)for the specimen, performed microscopic examination when indicated , andrendered the final diagnosis. Gross DescriptionThe specimen is received in formalin labeled with the patient's name"Mary Ann Bunn" and "left breast mass". It consists of an unorientedportion of fibrofatty breast tissue measuring 4.6 x 3.7 x 2.5 cm. Thesurfaces are inked and the specimen is sectioned to reveal a lozano solid andcystic cut surface. The solid component extends to the inked surfaces. The cysts contains clear fluid and are randomly present throughout the cutsurfaces. There is minimal peripheral yellow fibrous and fatty tissue. Program Director/Traffic Director sections are submitted in six cassettes to include radialcross sections of ends in A1 and A6. ND/hjgMicroscopic DescriptionSections show a well-circumscribed lesion consisting predominantly ofnodules of closely packed tubules in cellular stroma with scatteredmarkedly ectatic ducts exhibiting apocrine hyperplasia. These findingsare most suggestive of a tubular adenoma arising in a background offibrocystic change. The lesion is entirely excised, and there is noevidence of atypia or malignancy.This report may include one or more immunohistochemical stain results thatuse analyte specific reagents. All positive and negative controls havebeen reviewed by the attending pathologist and are satisfactory. The testswere developed and their performance characteristics determined by [facility] Pathology department. They have not been cleared or approved by the USFood and Drug Administration. The FDA has determined that such clearanceor approval is not necessary. Name Value Range Interpretation Code Description Data Kia rce(s) Supporting Document(s) ID Date Data Source [id number] 01/30/2020 12:18:04 PM [facility] Name Value Range Interpretation Code Description Data Kia rce(s) Supporting Document(s) History and Physical [facility] HUQUFf9iJpTNLrAh12/GBFcjCWJvt1UbZTedNKq7RRthMFXvU8KuUVN9iJ3rGVZ0CGvUBrMxQvFbDDKw lbm [file] AgICAgICAgICAgICAgICAgICAgICAgICAgICAgICAg ICAgICAgICAgICAgICAgICAgICAgICAgICAgICAgICAgDQogICAgICAgICAgICAgICAgICAgICAgICAg ICAgICAgICAgICAgICAgICAgICAgICAgICAgICAgICAgICAgICAgICAgICAgICAgICAgICAgICAgICAg ICAgICAgICAgICAgICAgDQogICAgICAgICAgICAgIC AgICAgICAgICAgICAgICAgICAgICAgICAgICAgICAgICAgICAgICAgICAgICAgICAgICAgICAgICAgIC AgICAgICAgICAgICAgICAgICAgICAgICAgDQogICAgICAgICAgICAgICAgICAgICAgICAgICAgICAgIC AgICAgICAgICAgICAgICAgICAgICAgICAgICAgICAg ICAgICAgICAgICAgICAgICAgICAgICAgICAgICAgICAgICAgDQogICAgICAgICAgICAgICAgICAgICAg ICAgICAgICAgICAgICAgICAgICAgICAgICAgICAgICAgICAgICAgICAgICAgICAgICAgICAgICAgICAg ICAgICAgICAgICAgICAgICAgDQogICAgICAgICAgIC AgICAgICAgICAgICAgICAgICAgICAgICAgICAgICAgICAgICAgICAgICAgICAgICAgICAgICAgICAgIC AgICAgICAgICAgICAgICAgICAgICAgICAgICAgDQogICAgICAgICAgICAgICAgICAgICAgICAgICAgIC AgICAgICAgICAgICAgICAgICAgICAgICAgICAgICAg ICAgICAgICAgICAgICAgICAgICAgICAgICAgICAgICAgICAgICAgDQogICAgICAgICAgICAgICAgICAg ICAgICAgICAgICAgICAgICAgICAgICAgICAgICAgICAgICAgICAgICAgICAgICAgICAgICAgICAgICAg ICAgICAgICAgICAgICAgICAgICAgDQogICAgICAgIC AgICAgICAgICAgICAgICAgICAgICAgICAgICAgICAgICAgICAgICAgICAgICAgICAgICAgICAgICAgIC AgICAgICAgICAgICAgICAgICAgICAgICAgICAgICAgDQogICAgICAgICAgICAgICAgICAgICAgICAgIC AgICAgICAgICAgICAgICAgICAgICAgICAgICAgICAg URDjEFBdEKYfAWZjVQXwLMHwRIYxGHPtLTNzFTAqQBAuTUDvPOBxKSDwKRa2K4noIOUsXQSzLQ1mJSz8 Jz8+CXxJZfUsIXC6qmWnmC1TMS9dt8NlNNeiJGKsx5TgXVk7XH7UDLChETjtJG0SMLknms7ELOSvPXBy tFYZp6clWtIiCJZ3MOEhBvxqFS9VKFOqU5vysrDgXF ZcXKYHONfjUZAEVNwqGXHECKRbENXoDcKxOsSlAMFtDX9RWKPrN157kpJoQS3SIp9KQrPvIB4fqk1VWe TsUCZpJkxAUss4LKjfXL5YpRKqaZAfCCJaDQYRSnRqB4obc7ToBtEfFOLIZHelNQ1Tk8HwgTJiEPp+Pg 4URH4lk2QpTHukEHOxXD9xfh2ZKOoCYsSuZ9NotVwr BFjfTAAveIIBNWG3HYLgyIAeTJrfWYLdFCIHFJBueZFyIR8zUdXtPzEmXPG7IExkEH0gEWofBO7UTOG2 WShlMWFyIRHzN4eQQuLoYGC0KwKkqYbdUP5ORaUoC1IhlwBxeAOkSOQlNRTECo4+DQplbmRvYmoNCjMy YNEyv3EiAIy2HJ7DNIPjQFyvJF6DKZOksK6tLAvgEE 4JVkOrTCMxVBXLRlRuB50omTUdTAr9U2QzGaJoXLFuXowjHQFfVEhyZgRwPAYwLyAhFViyQQ5+ID4+DQ hsOU3VJUjubdFwRSDpPu6OCLEfTLMvMG0hLWWgYCJtX2O7kProNWMINoNeX5geoidwAF8bRXHjM307hE iendHkRTLkAAYeDh7TOJXfKTC6TZIpsQNbUbukKJSH YVvoMV6ExVZvMUL4mG5qQJebEKBhUNSbA7hEIrOtrWubLJ40hOoyabZwrUNiDMi+Rb3VTX5cl1RhXPg1 alPwEFoaWWYmJOizBMVwEEWlWDJmNDM5AFK3GHYJMmXiVWBmICOvZJkjSTCbIMAfbk2YZBCiDNBoSsE0 GhKxWVEdSQSoWYgoXLZyRHQ4EWNvXFQaSTPdWM2AUg JwFNYqCABvOYjgLGGhAFOpbl3YRNRrVVBzBHWtUhShVXRkUKPuGUegBQOwNYD2FWHvCURkJTKwFX1JLc KqPCCpMUedNXRqQQPlXQXkvd5ZSZJnUKMdBqDrAOGmXRObZLSxXAjjWRAbVUF2GNXxYZDwYPRtVN0XMh YjNVIcEDBnQlxyVFZjOIBgfl9HLHMaNYYmMdKsPWJj ZRCpJLHlLXtqSDXzFZIrGVMeDAGlOYVrWV6ABnLbZBLsHFE2DVYzDCVaROBjou0XUQRnYQAvWVfnQoNq RMVvCEKbLYnbVVNkUBY4AXF8AIKeDNIcQC8ODyZbOGQpHXdrBjWvDUZpGDNcva9SSUZhHTPsYeC8OuWe MMJnFCAyYVieCAExPZU8NkM0RBEyAWTyIX6SSnYjHU YzRFo2VAtjERDpGIGayh1HPYIlAUCtVLH1JNVkGURqQVSaNNziAWEnIIZpDZK5AULkUUBzWB0GQrKhDS OdZqExWYYaUPBmSXTasy8MUXMdMTNeITB3LMPeSYLxKSZtAJhkKBRnEQWwPIB7JLEqHVRdXQ7SHpGzZN DyDaE3HQOkBEBaBBKkkk9XPAPdIJTeCFy6IIHnFFJw PAUyGGxeAAAxIKReEDl8AIOkRIIbXB3KGrZtYOGuIaMkJwHuQZHtBHOsho9DMLUbDTJqWtR0YkUtRKVx UCUdATwmAVXvPWW4CRS0BSEqKOTqKW8VWgTiTTWsNkJkOEunOJGnJBEjve3TOMKmPYDcNFF5GgAdYPBo OGRtRZz6dvVqtQJmOKh3XA3XP0FnjkZpRdWVWj0An3 22CORrJVGuLt6KI8pvCq3xJDOrGBQEPh6DOYd5HJZiIRMfNIcxBDLnT6JzOyU5WEdqJMMjXYEaGwqoNH A+HRywFpA7NMUxKXE8VBZbGFLiOJqiZTAqYWO8S5VnHJJhYJ9tSCOIKy4+OJhjxDTkwHwdMRZOVkU6Jk GxFQovKGGUSn0F ID Date Data Source [id number] 01/09/2020 05:44:41 PM EDT [facility] US BREAST INCLUDING AXILLA LIMITED LEFT [id number] RESULTInterpreted by:Anu Canada MDTARGETED LEFT BREAST ULTRASOUNDINDICATION: Follow-up of left breast masses. 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 This mass measured 2.0 x 2.0 x 2.1 cm on 06/27/2018. This corresponds with the previously biopsied mass.Lateral to this mass at 3:00, 6 cm from the nipple, there is a 1.6 x 0.7 x 1.6 cm oval hypoechoic mass in parallel orientation demonstrating posterior enhancement and internal vascularity. This measured 1.1 x 0.6 x 1.3 cm on 03/11/2019.IMPRESSION/RECOMMENDATIONS: Interval increase in size of 2 adjacent left breast masses. These findings are low suspicion abnormalities. Biopsy of th e smaller mass should be considered. Surgical consultation is recommended. The patient is scheduled to see Dr. Red following this exam.BI-RADS 5-ceotmfibgpHE-[id number] 4A low suspicion abnormality.This document has been electronically signed by Anu Canada MD on 01/09/2020 5:42 PM Name Value Range Interpretation Code Description Data Kia rce(s) Supporting Document(s) ID Date Data Source [id number] 01/09/2020 11:59:00 AM T [facility] Name Value Range Interpretation Code Description Data [facility] rce(s) Supporting Document(s) Progress Note [facility] [id number] lbm [file] [id number] Procedure Social History Code Duration Value Status Description Data Source(s ) Alcohol intake 02/10/2020 12:00:00 AM EDT Current non-d nusrat of alcohol (finding) completed Current non-drinker of alcohol (finding) [facility] Tobacco use and exposure 02/10/2020 12:00:00 AM EDT Never used co mpleted Never used [facility] Smoking 02/10/2020 12:00:00 AM EDT Never smoker completed Never s [facility] Alcohol intake 01/31/2020 12:00:00 AM EDT Current non-d nusrat of alcohol (finding) completed Current non-drinker of alcohol (finding) [facility] Vital Signs ID Date Data Source [id number] 02/10/2020 10:20:43 AM EDT [facility] Name Value Range Interpretation Code Description Data Source(s) WEIGHT RECORDED [address] [facility] Body height Measured 66 in 66 in [facility] ID Date Data Source [id number] 02/06/2020 12:37:09 PM EDT [facility] Name Value Range Interpretation Code Description Data Source(s) WEIGHT RECORDED [address] [facility] Body height Measured 66 in 66 in [facility] WEIGHT RECORDED [address] [facility] Body height Measured 66 in 66 in [facility] ID Date Data Source [id number] 01/09/2020 11:31:28 AM EDT [facility] Name Value Range Interpretation Code Description Data Source(s) WEIGHT RECORDED [address] [facility] Body height Measured 67 in 67 in [facility] Patient Treatment Plan of Care Planned Activity Planned Date Details Description Data Source (s) fentaNYL (SUBLIMAZE) (PF) injection 25 mcg 01/31/2020 10:19:25 AM E DT [facility] HYDROmorphone (DILAUDID) injection 0.5 mg 01/31/2020 10:19:25 AM ED T [facility] ondansetron (ZOFRAN) injection 4 mg 01/31/2020 10:19:25 AM EDT [facility] zonisamide 25 MG Oral Capsule [facility]
[2020-06-21 14:07] LABS: BASO # 0.1 10^3/uL (0.0-0.2); BASO % 0.7 % (0.0-1.0); EOS # 0.2 10^3/uL (0.0-0.5); EOS % 2.1 % (0.0-3.0); HEMATOCRIT 39.6 % (36.0-47.0); HEMOGLOBIN 13.1 g/dl (12.0-15.5); LYMPH # 2.4 10^3/uL (1.5-5.0); LYMPH % 32.4 % (24.0-44.0); MEAN CORPUSCULAR HEMOGLOBIN 29.6 pg (27.0-33.0); MEAN CORPUSCULAR HGB CONC 33.1 g/dl (32.0-36.5); MEAN CORPUSCULAR VOLUME 89.4 fl (80.0-96.0); MONO # 0.6 10^3/uL (0.0-0.8); MONO % 7.7 % (2.0-8.0); NEUTROPHILS # 4.3 10^3/uL (1.5-8.5); NEUTROPHILS % 56.7 % (36.0-66.0); PLATELET COUNT, AUTOMATED 278 10^3/uL (150-450); RED BLOOD COUNT 4.43 10^6/uL (4.00-5.40); WHITE BLOOD COUNT 7.5 10^3/uL (4.0-10.0)
--- OUTSIDE RECORDS SUMMARY | 2020-06-21 14:50 | CCD ---
Author Author [facility] Organization [facility] Address Unknown Phone Unavailable Care Team Providers Care Furnace Liner Name Role Phone Hoyt, A Kristina PA [...] Unavailable Jaswinder, Kassie Sen MD Unavailable Unavailable Jsawinder, Kassie Sen MD Unavailable Unavailable Jaswinder, Kassie [...] is protected by Article 27-F of the [facility] Public Health law. If you continue you may have access to information: Regarding HIV / AIDS; Provided by facilities licensed or operated by the [facility] Office of Mental Health; or Provided by the [facility] Office for People With Developmental Disabilities. If such information is present, then the following [facility] mandated warning applies: This information has been [...] law may result in a fine or usp sentence or both. A general authorization for the release of medical or other information is NOT sufficient authorization for further disc losure. Allergies and Adverse Reactions Type Description Substance Reaction Status Data Source(s ) Drug Class NO KNOWN ALLERGIES NO KNOWN ALLERGIES [facility] Encounters Encounter Providers Location Date Indications Data Source(s ) Outpatient Attender: Kristina SIMMONS 02/18/2020 12:00:00 AM [facility] Outpatient Attender: Francy Red MD [id number] 02/10/20 12:00:00 AM EDT - 02/10/2020 10:20:20 AM [facility] Outpatient Attender: Francy Red MDAdmitter: Francy Red MD 6 [id number] 01/31/2020 12:00:00 AM EDT - 01/31/2020 12:00:00 AM EDT Benign neoplasm of left breast [facility] Benign neoplasm of left breast Patient discharged. Outpatient Attender: Francy KEBEDEeferrer: Francy Red MD 01/31/2020 12:00:00 AM [facility] Outpatient Attender: Francy Red MD 01/31/2020 12:00:00 AM [facility] Outpatient Attender: Francy Red MD [id number] 01/30/2020 12:18:04 PM [facility] Outpatient Attender: Francy KEBEDEeferrer: Francy Red MD 01/09/2020 12:00:00 AM EDT Other abnormal and inconclusive findings on diagnostic imaging of [facility] Other abnormal and inconclusive findings on diagnostic imaging of breast Outpatient Attender: Francy Red MD [id number] 01/09/20 12:00:00 AM EDT - 01/09/2020 11:53:08 AM [facility] Outpatient Attender: Francy Red MDReferrer: Francy Red MD 12/12/2019 12:00:00 AM [facility] Outpatient Attender: Francy Red MD 12/12/2019 12:00:00 AM [facility] Medications Medication Brand Name Start Date Product Form Dose Route Admi nistrative Instructions Pharmacy Instructions Status Indications Reaction Description Data Source(s) ondansetron (ZOFRAN) injection 4 mg [id number] 01/31/2020 10:19:2 5 AM EDT 4 mg Intravenous active 4 mg, In travenous, Once PRN, Nausea, Vomiting, Starting Mon01/31/20 at 1019, For 1 dose, [facility] Medication administered onsite HYDROmorphone (DILAUDID) injection 0.5 mg [id number] 01/31/2020 10:19:25 AM EDT 0.5 mg Intravenous active 0.5 mg, Intravenous, Every 5 min PRN, Severe Pain (Pain Scale Score 7-10), Starting Mon01/31/20 at 1019, For 4 doses, [facility] Medication administered onsite fentaNYL (SUBLIMAZE) (PF) injection 25 mcg [id number] 01/31/2020 10:19:25 AM EDT 25 ug Intravenous active 25 m cg, Intravenous, Every 5 min PRN, Moderate Pain (Pain Scale Score 4-6), Starting Mon01/31/20 at 1019, For 4 doses, [facility] Medication administered onsite Cefazolin 2000 MG Injection ceFAZolin (ANCEF) IVPB 2 g in dextrose (premix) ceFAZolin (ANCEF) IVPB 2 g in dextrose (premix) 01/31/2020 07:45:00 AM EDT 2 g Intravenous completed 2 g, Int ravenous, Administer over 30 Minutes, Once, Mon01/31/20 at 0745, For 1 dose
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
Pre-op [facility] Medication administered onsite Calcium Chloride 0.0014 MEQ/ML / Potassi um Chloride 0.004 MEQ/ML / Sodium Chloride 0.103 MEQ/ML / Sodium Lactate 0.028 MEQ/ML Injectable Solution lactated ringers infusion lactated ringers infusion 01/31/2020 07:45:00 AM EDT 100 mL/h Intravenous active at 100 m L/hr, Intravenous, Continuous, Starting Mon01/31/20 at 0745, For 30 days, Pre-op [facility] Medication administered onsite zonisamide 25 MG Oral Capsule zonisamide (ZONEGRAN) 25 MG capsule zonisamide (ZONEGRAN) 25 MG capsule 25 mg Oral aborted Take 25 mg by mouth daily [facility] Insurance Providers Payer name Policy type / Coverage type Policy ID Covered alliance party ID Covered alliance party's relationship to schaeffer Policy Schaeffer Plan Information [facility] [id number] [facility] [id number] 'S ADMINISTRATION [id number] SP [id number] U [id number] Self [id number] U [id number] Self [id number] U [id number] Self [id number] U [id number] Self [id number] [facility] ACTIVE DUTY [id number] SP [id number] [facility] WPS [id number] S [id number] [facility] REG O [id number] S [id number] U [id number] Self [id number] SELF PAY SP Problems, Conditions, and Diagnoses Code Display Name Description Problem Type Effective Dates Data Source(s) D24.2 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 Diagnosis 01/31/2020 07:26:00 AM [facility] Juvenile fibroadenoma, 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] Juvenile fib roadenoma, left [D24.2] Diagnosis 01/31/2020 07:26:00 AM [facility] R92.8 Other abnormal and inconclusive findings on diagnostic imaging of breast Other abnormal and inconclusive findings on diagnostic imaging of breast Diagnosis 01/09/2020 10:30:00 AM [facility] Surgeries/Procedures Procedure Description Date Indications Data Source(s) [facility] Routine 01/31/2020 7:51 AM EDT 01/31/2020 07:51:00 AM [facility] DO NOT USE PRIOR TO 08/30/2015 US BREAST INCLUDING AXILL A LIMITED LEFT 51581 DO NOT USE PRIOR TO 08/30/2015 US BREAST INCLUDING AXILLA LIMITED LEFT [id number] STAT 01/09/2020 11:03 AM EDT Abnormal finding on radiological examination of breast 01/09/2020 11:03:07 AM EDT Abnormal finding on radiological examination of breast [facility] Abnormal finding on radiological examina tion of breast Results ID Date Data Source [id number] 02/10/2020 10:20:43 AM [facility] Hospital Name Value Range Interpretation Code Description Data Kia rce(s) Supporting Document(s) Progress Note [facility] KJNRFp3yXrVYKjZq62/BLDhgUCGjh0YuCAbhZYp6JIqkQQWjV8HcYNW0dG6xCLM5YXxNRhWdKjXnOAAt lbm [file] ICAgICAgICAgICAgICAgICAgICAgICAgICAgICAgICAgICAgICAgICAgICAgICAgICAgICAgICAgICAg ICAgICAgICAgICAgICAgICAgICAgICAgICAgICAgIC AgDQogICAgICAgICAgICAgICAgICAgICAgICAgICAgICAgICAgICAgICAgICAgICAgICAgICAgICAgIC AgICAgICAgICAgICAgICAgICAgICAgICAgICAgICAgICAgICAgICAgICAgDQogICAgICAgICAgICAgIC AgICAgICAgICAgICAgICAgICAgICAgICAgICAgICAg ICAgICAgICAgICAgICAgICAgICAgICAgICAgICAgICAgICAgICAgICAgICAgICAgICAgICAgDQogICAg ICAgICAgICAgICAgICAgICAgICAgICAgICAgICAgICAgICAgICAgICAgICAgICAgICAgICAgICAgICAg ICAgICAgICAgICAgICAgICAgICAgICAgICAgICAgIC AgICAgDQogICAgICAgICAgICAgICAgICAgICAgICAgICAgICAgICAgICAgICAgICAgICAgICAgICAgIC AgICAgICAgICAgICAgICAgICAgICAgICAgICAgICAgICAgICAgICAgICAgICAgDQogICAgICAgICAgIC AgICAgICAgICAgICAgICAgICAgICAgICAgICAgICAg ICAgICAgICAgICAgICAgICAgICAgICAgICAgICAgICAgICAgICAgICAgICAgICAgICAgICAgICAgDQog ICAgICAgICAgICAgICAgICAgICAgICAgICAgICAgICAgICAgICAgICAgICAgICAgICAgICAgICAgICAg ICAgICAgICAgICAgICAgICAgICAgICAgICAgICAgIC AgICAgICAgDQogICAgICAgICAgICAgICAgICAgICAgICAgICAgICAgICAgICAgICAgICAgICAgICAgIC AgICAgICAgICAgICAgICAgICAgICAgICAgICAgICAgICAgICAgICAgICAgICAgICAgDQogICAgICAgIC AgICAgICAgICAgICAgICAgICAgICAgICAgICAgICAg ICAgICAgICAgICAgICAgICAgICAgICAgICAgICAgICAgICAgICAgICAgICAgICAgICAgICAgICAgICAg DQogICAgICAgICAgICAgICAgICAgICAgICAgICAgICAgICAgICAgICAgICAgICAgICAgICAgICAgICAg ICAgICAgICAgICAgICAgICAgICAgICAgICAgICAgIC GbYNXpKENyGZAoUNe0H2tgRLEcROZqWF9cNNl9Qu4+GYiERoIqICR0mfNogJ6JGB7ya9WlODrvQMMvh6 PiJXi9FA0GGYHlKMifCN0CSQspix4ZRBYlYMXuuUVLa8obIuAlYDG6JMLnKkexTK4YYIXqA1wjdtHvGS UgMCBSIDcgMCBSIDkgMCBSIDExIDAgUiAxMyAwIFIg FQ0YUVJaH419jdAvYK5SLv1HYgVvKP5qxr4NArMuFFAjUkfDYdg9MRunQA7UrDWlsUJqNEMpUJZBGiKk W5awo8ExKrOnEIDZIPcoDI6Bc8HqiQRcWLf+Yu1BOB0rq6RbKRvhZRIiXH4qpd4GUHgIFpOwX2NmtWbh WZEtm1gtXLUtOI8sfRDhNEZ8QA8nqwpoWEwtAM6pU4 IdQ17jHQ9DWVZ7MJPvGyAbJzSyEvDdTLz2XSOyXF8tRLygCG7RBUJ9IZtsEMOyZRRmO3gSPePcZFL1Qx MeoMqyYZ4EMoAxK2JqadDviOBgITZnJLNCWg5+VDdhgcNzSnwOVpXkMWArc2BkFYq7ZG1QWVKbBGvmBJ 3UKOIgrG6pDCjbTJ4ZEoUxIMQcKSDFLcZgV89prXKx CYv8H6FpLqYdYLHmLqilWDQfKPnjLoAqPZJdSeNbZDxtFK3+ID4+UCuxQO1GKWrdkeFiHZNuOp6IOKKg WTEoSM8rEBLxLTJmY2J9oVfgHSQHCySxX1xwacinIY5nQXDmV584qEsoxpFqSYLbPGBiLb3XKOWyYIR9 CXJeeJYiEczmRKYHVFeoOW1ZyXTgLTH3hN3kUJytCB DiAAMaJ7yVHcComMwyPD83kHxxjrCykYFgOIf+Xn8OMM2ma4RkJCl5ipGnAXrjWGQzIOrjMJZkRELmJP NwJOO2JPG6WJKIYgCoAQAgZZXkXCcxEOHdAWXoay6ENGCaCSJdLzWmGYJvCEWgIEUeZSguZAFqNFCeHT P1TFLcEWAyAK6XAkYiFAXqWMYsNPqqSUTzGWIitf9M BXOkKJYnAib8MDPeVPCcNLXnBVokODTlZCU8OLwxIKItCDFaXS1BXwKcBPPhNBivNYPgBIWjODWlhp1L JYJqOSChKpOdDPQwGBTwLGExBRavYRJdLIX4VTWfRLQrKJRnRJ4AIqZuBRPpOXRhNbMoDBBmUPUxxw2A VIZwNROjOzH1DZJvUKBmJLGnNVxzSKJnCLGrCWE3JW WfDVPrBE7JSiBrQSGkXFG8VScwGHZyTXHayj3JRAGiSFQbDDsfMfCnUSIhXKLnJMhnAKViDTC9UrviRX WxQBTuPV8SOlMuLKVmLPQ3VICnRKAoZARpzf6VDYMgXRJySeD9IcDiRSAtDSUuHHyaRLVoPUS0OGTlWI EzKNCsBP6YEvCjBKPgSIdhJoIcSQMvOIUlof6NYDQf SPVnHOTeNxNjJHCjTGHtGVrbNIBvEOZ9SBQjNWLtMTKgZQ5YRhSjIYUpItHpOkkyARFyAGNgmn8LPHEt SMJiCNS8MyTqWKBnROSaINcpKEKaXWMiApS6USJgTOCbYS5MPnWwELCxYpI3XfNxQNJiVTLymc9MVYZg YRBeAJrsHbWkRSJkAFXgBDqbNRZmIMWgAFW8HPUtIK OdGN4FMuAoGMHrZeQePSSjDIJlJIZnxa8OUBEsXGHjLbB8YBUkKMUyPUIaWVdmVVFeGCBqYHHgMCNaMT ExIT1PAfBjNMMwKrOcMuOtUHRkSKAvth7YMCQsNSXvTTO6HuEpUVAsQYPzFGn2gkAcmHYmJGg9NC9AA8 VlilGwArFANi3Bw905ZHHrQWYyOo8HM8clFh5dLDVr FYXNFk5ZBZo3AoA7CJYbVahqIgssZcLrSUN9IMW0V6CbSQDpZENfKNU+FMdwYTI6HHQ0CRXgWKWrDmEz Cxu7APrhBIYgLTAuVfGjEW1rYDZODx1+RJdkrKQvlXsdHIBGCaY5RMSqMZlxQVNGGx4L ID Date Data Source [id number] 02/03/2020 08:47:39 AM EDT [facility] Hospital Name Value Range Interpretation Code Description Data Kia rce(s) Supporting Document(s) Operative Note [facility] DSETZa7pKbZINaVg52/SEKvdPXMyp5RsGFngHDj1PGczNACkT9ErPTD6yF4lUCW8WSnSEaQyUhPjBRV4 lbm [file] AgICAgICAgICAgICAgICAgICAgICAgICAgICAgICAg ZQStBMZgQOZoAVQdUGEdWUFbQTAsWMDrREVcJARoVNYmASGlYFDtAX7IUSRzIFYrESEaOYSkFLDqWTUr ICAgICAgICAgICAgICAgICAgICAgICAgICAgICAgICAgICAgICAgICAgICAgICAgICAgICAgICAgICAg IGTkYJMqSBIiNTBrTIWbYKXqMIQkUH9JINEeDSXmVY AgICAgICAgICAgICAgICAgICAgICAgICAgICAgICAgICAgICAgICAgICAgICAgICAgICAgICAgICAgIC NjGHIcJFFpXPTvFMEvVWToGWOaPFDsKVQuPBIoKJYaCL4EZXNjZCCtGLVhYNNsCUXvOTLhIOZeEMOyUS AgICAgICAgICAgICAgICAgICAgICAgICAgICAgICAg REZdWSJqMFPiQZHzXEYrLLWtUYFmIYNzFONnOMWaQSVxYXRtUCKoVSZoOL8FFYPjMTTvFEAcEHSeRUCi ICAgICAgICAgICAgICAgICAgICAgICAgICAgICAgICAgICAgICAgICAgICAgICAgICAgICAgICAgICAg XFKdXNQhLBWfAFAmWVFaIQRoDKHdZBIfAJ9WMCOyQE AgICAgICAgICAgICAgICAgICAgICAgICAgICAgICAgICAgICAgICAgICAgICAgICAgICAgICAgICAgIC VxSDSwBYTbMRWxXPYkUSVxHBUeMGSqNADbLHCrXXMtROOjHH7FRQJhFWBkJTJbPGWcODBrUVFdHHLoJS AgICAgICAgICAgICAgICAgICAgICAgICAgICAgICAg LXZtAFEmVDOjEKMjAMWdHBUxPOWyCYPwJATxIHCvPYPvTHZvTYJxPWWyRMPlLM6JNFYlOTGzXTNuVUNq ICAgICAgICAgICAgICAgICAgICAgICAgICAgICAgICAgICAgICAgICAgICAgICAgICAgICAgICAgICAg PTVeEKPoTFOcKTHfEBQeUTLfPWXjSIYbTPQcWF4TGE AgICAgICAgICAgICAgICAgICAgICAgICAgICAgICAgICAgICAgICAgICAgICAgICAgICAgICAgICAgIC GvCTRuGCAvKQBlTVRgBMWrMFOzRCUeTRAfQGMpFHEiFMJvXWOoDO4GMARtKENlJRJeGWSjBBSqWIQaBY AgICAgICAgICAgICAgICAgICAgICAgICAgICAgICAg SHHcOYIkBOQqYEMqVWPaDDXxZJLiFISwHHEuFZLhQATaRDNbEQBdBHSqWVRuZXShPJ3LEU38zRWzk3A1 DIKgKT0nhcb/Xh9VIQxtrdRhaKViBB8WQiQqAG6rsu8ERkEaJH2bwb9TYCgRGdDtC1O0qOYfGZKyKHBX CtYqQ52mVVfzFg83OZloFSEuZcUgDDz6Xh7WJhVkB7 qnGBOgNoL7EQErKuB6MTVtQrXkCAieIN0Xe3KxqJUjUJg+Wr5HGK5hm2BhPTcyPADnXT6oik6SNBaWMp FvS2SwzcK0LDStBRIlTb8VPHWrQHGmxDLhXNYkWSLSWtXsG5WhxY08AJIUJf7+DQplbmRvYmoNCjIwID Jfm1KbZIb1YM7DVOSiDHh6jVKaD4TsroA8hJUuTB9p lELrBsitIAWpuZYByXqyitCRmjLdfhtzOXLjSOFnBWPsGl6dRDPfIVSpXoLcKTNNCQ5SKYFiQVTvbWTt WAWtMOAMAR1DZQrsWTW5LSGudtRykTMoVJpvTC7YYZXvvzEhXRyuVDVKXZf+Aj5SDA7sm5PpDVyrGPDv ZM0pyb1FRMrRPhWeW8G2wPFdW8Z8JSgrJb0DXUPbSB MlBOcvKBFLNLwgNW3UUS6wshD5XL1AwQJkQZBlSHBcsOKeTPc0Y42igMMiYWatKJ2NMAH+Lavell+Pg0KIC GvUJHySGRdCmGpVFCBEfGdO5AiB6BIy0LbQ6YvRS77gGxjpwNtOGpiAG6CFV2lTCUiDHJRHV6KiBBmbY 7cglRwQPIyHEZKGlWxZ89ybIGqJHAfCMB6GGIzRj8C HJFjF7VmwkZyqWskqhDhNLSzTDNOYA1YHZqjwiWrjAEmkMapRA16kMtvNP3PQv4OPeCwOP9qiv8GoJXk Tb4NJQHaEk0PZBImNFCqBTDoYEX5GNAbGmBrFSuaKPFpWTWsQHL9MGGdPBXjXT7BDdKtDJKoJDv1VCtn KSCtOYRczs2MIHAmLVMqLVR4ZWUbNSLhWCBrVWxjPH FgJYQoMJS0CLKrCAMwPY5BMfOlGOIoOEDbCpWgBPPjXRHbyd4SEAHcMRUuSiYvGnLuBVVeUNVnBWppWD EmNZF1HasjWNHjJOKwVF4BEaJuGKCsGWQ1STgsOZDeSUJgrv1MFIDgQKAdAWr4XgJkFGVvZFSbIRhxKR JtIPD1XWIbSGNtUPLkIS5QThRzXXHeLZRsByVhAEBq EZEpjn4HMWUsZRNyQyK8ZuHnPXUoXOIuSCivCCHxOMK1Cfg3DQViTZLpOP3KKnExFOBuIWe1IXKkWUOv XCPwqk5XOOReWJOfYOB6JPSgNKSaRSEePKvxUUXyTIJ3FeO3AHYnCJKrAU5PRgZfAGEbMUq5NkGtIQJj OJLfex3FWZEeXANgOWG1ZYQyLGEoTMYdJPwpTOWiFM ItWZOcVOGaGMQdXX1YCjLcXYOzIKP2KhFeRLIqQNSaqu3BGYMuPCAaBIGsNNAcILCuYJVtLHa4ohOtoW PwUPb8XY9YJ2XldqTxRxRXPt9Pj406NHYyQLCyJf0WR7qaRh5sDKAzUFYFIh5ZUXr6LJH8JyW9JKFaAE gxNYT4JVEtM4L6Dhx5BzAfHEr6U7S+IDwxYTlmYTQ5 ACM4RjBfSOamMtAyRjPqDJFwXVKoKOnnVb2ePWPWTd7+PSserKWwlSrqMTCVZlQkCpO3KIejIPLWRa6G ID Date Data Source [id number] 01/31/2020 08:02:59 AM EDT [facility] Name Value Range Interpretation Code Description Data Kia rce(s) Supporting Document(s) Choriogonadotropin.beta subunit free [Units/volume] in Serum or Plasm a <5 [facility] (NOTE)Levels between 5 and 25 [IU]/L may indicate earlypregnancy and should be repeated after 48 hours. ID Date Data Source [id number] 02/06/2020 12:36:00 PM EDT [facility] Surgical Pathology ReportName: MARY ANN BUNNMRN: [id number] Number: [id number] Date: 01/31/2020 00:00Received Date: 01/31/2020 11:23Physician(s): JASWINDER,CORETTA,MD JASWINDER,CORETTA,MDSpecimen(s) ReceivedA: Left breast massClinical HistoryJuvenile fibroadenoma left. DiagnosisBREAST, LEFT, LUMPECTOMY: BENIGN FIBROEPITHELIAL LESION, COMPLETELYEXCISED. (See Microscopic Description.)Annmarie Segal MD;Resident PathologistElectronically Signed By Cate Carty M.D., Attending Tjkobmvbkuy27/8/2020 12:36:55Processed at [facility] Laboratory at [facility], [address] [place] [address]. The attending pathologist named aboveattests that he/she [...] minimal peripheral yellow fibrous and fatty tissue. Field Crops Harvest Machine Operator sections are submitted in six cassettes to [...] developed and their performance characteristics determined by [facility] Pathology department. They have not been cleared or approved by the USFood and Drug Administration. The FDA has determined that such clearanceor approval is not necessary. Name Value Range Interpretation Code Description Data Kia rce(s) Supporting Document(s) ID Date Data Source [id number] 01/30/2020 12:18:04 PM [facility] Name Value Range Interpretation Code Description Data Kia rce(s) Supporting Document(s) History and Physical [facility] JWUIKx3cHpXPSqHp03/QVLqzUGEyk2NjWUtlEYi9CJsqCQYlA5SgHYT3rG2mJMC5TToKYhFuIaIwUGHc lbm [file] AgICAgICAgICAgICAgICAgICAgICAgICAgICAgICAg ICAgICAgICAgICAgICAgICAgICAgICAgICAgICAgICAgDQogICAgICAgICAgICAgICAgICAgICAgICAg ICAgICAgICAgICAgICAgICAgICAgICAgICAgICAgICAgICAgICAgICAgICAgICAgICAgICAgICAgICAg ICAgICAgICAgICAgICAgDQogICAgICAgICAgICAgIC AgICAgICAgICAgICAgICAgICAgICAgICAgICAgICAgICAgICAgICAgICAgICAgICAgICAgICAgICAgIC AgICAgICAgICAgICAgICAgICAgICAgICAgDQogICAgICAgICAgICAgICAgICAgICAgICAgICAgICAgIC AgICAgICAgICAgICAgICAgICAgICAgICAgICAgICAg ICAgICAgICAgICAgICAgICAgICAgICAgICAgICAgICAgICAgDQogICAgICAgICAgICAgICAgICAgICAg ICAgICAgICAgICAgICAgICAgICAgICAgICAgICAgICAgICAgICAgICAgICAgICAgICAgICAgICAgICAg ICAgICAgICAgICAgICAgICAgDQogICAgICAgICAgIC AgICAgICAgICAgICAgICAgICAgICAgICAgICAgICAgICAgICAgICAgICAgICAgICAgICAgICAgICAgIC AgICAgICAgICAgICAgICAgICAgICAgICAgICAgDQogICAgICAgICAgICAgICAgICAgICAgICAgICAgIC AgICAgICAgICAgICAgICAgICAgICAgICAgICAgICAg ICAgICAgICAgICAgICAgICAgICAgICAgICAgICAgICAgICAgICAgDQogICAgICAgICAgICAgICAgICAg ICAgICAgICAgICAgICAgICAgICAgICAgICAgICAgICAgICAgICAgICAgICAgICAgICAgICAgICAgICAg ICAgICAgICAgICAgICAgICAgICAgDQogICAgICAgIC AgICAgICAgICAgICAgICAgICAgICAgICAgICAgICAgICAgICAgICAgICAgICAgICAgICAgICAgICAgIC AgICAgICAgICAgICAgICAgICAgICAgICAgICAgICAgDQogICAgICAgICAgICAgICAgICAgICAgICAgIC AgICAgICAgICAgICAgICAgICAgICAgICAgICAgICAg FFWxICIzEURqIAIpFIZsBLMbMRNmKIEcLTQvZRUiTUIxYYWqRPPeDEXvCVy4D1orFGWsTOLiZC6wDZi1 Jz8+HNnHTxWtZWN7qqRxvE9UFD2dq3DoLRidCABuc9JoVDw7IY5JHLSkQIhwHD8WAFzbwm8MZSPeKBIs nQHNl1waQjRuUBG0GZJnUmlcAZ6TVPYwH4zylqPoRN HiXLYIEMcpEXTCEJruQGMPCYNiHCYcPnXuUvNgLJBzPD4LDJLsA841rdRzAB6HDy8OWtUiMK7vcr2NLc NwDOXkHroBOgm9USdoRW6KaYDcbGWgJQHnIQZLVsWrG8bwq8PzVgHlGNOBQEydJO7Cy2CkgPNtWCl+Pg 7DXJ1ux3YlLXbyAIGvZC0ntr8AFIuPUsFsP2CifYab XKkoBSNzvBOINET2VLEwaXOeCQmrHWXeYEMKSIMusXAiJU3vYiTjXbPuEKQ4GIvrDA7iELldXD8BJVG0 IEqgGBHiDCEqA1mQCsTfZEG6UiKnuDcyPF3ASeRdQ7DumjNksRXmNOSjCWVMWp0+DQplbmRvYmoNCjMy NPNmw1CmZUk9LR2YMKEcCBxpQI4GUORmmZ4tEPrxWH 5KDhApHKQaYAAIYgFoO97nmHVjFBk4B6XaXwEhFXHcLllwKLDlAHhdJoFaFDGgXwDdPNunTT8+ID4+DQ bpRY8CCWltjfJvGUTbUj8LGFCpQXNwZO8gSGFfEUBhM0O1qUbjFFOZZvLkC5uzjvfgNX5vFWPmR126wA akjwEpFRUzPLTgDt5QHDHsVRO2HPEreDRgTdzwSKGN KWpeFR8ViYLcWZP2iZ6bKDkmOSUxMCSxH2oGEbTldIkhYZ01pQduitKffKFyFGp+Km7ILB2uh6HkUMf6 rdXcXGgjPNCuYCkbEFNmYKNtHNZvJDS0YUC1XCFQHaAeGKWlKCIlTYyfVZXsAZWdlp4NHFDpPNDaIfF2 CoPuVIQvAPIzHVbsAICqAYJ4PFDhZROrVZUmBU4KPa GrEEHrYJYaLMqhXRQeRJMkte6BNTWsLFKqLAQlAaFbRWZiQQSpAZijAVGjXQO0KTOuPMDiUBBxDT5EPx BhJKMfEHaqUSVsQTLmNCLeeq8IGFRaGTFrMxZkKDKeVUSdDRUhYTilDRXyUNO9FJPmPENlXEBnMJ8GRd FbGLPnTIKxPleeWDNcVCJzha3EWZJcJAVgAyUjPIMb JNXrHEAfXMxnGZRtQBFsZBZjXOVnDRGjBA9EZuLeLBTrJAN5BRIbSWUaJCNfwe0GDTSgPHCgQSjcGiTv PAYbCNWmMYgaMNKjMNP1DIN5EJWlGJEfOC4RQiNwPNYmWHdeDzIaLAOlEVSaqr5UWGZaXLGoIuH8QnPg VCPtOCMyWOxpJBYoQOU6OfF0SHSkMWHaAD3BWdRwDX UoKLk5PKbiKXUgZXGohf4ZUSPzBWNsOWE2ROGnYETfNNWrOLheVUTgRZAtYNO4BLJrMLVkUP6ILgUyNQ QnLyQkFNSnFSPfEFVmle7VZMGdQMJxLDP7CQLtFARuCEGfTKdtHFDjAFSvAHG1YRYsSCUgOE9JAwDuNL XlVmK5WTNwTMSuOVPmkh6VCABmDLPzVLw3YMIePEBj UEQeMAqlHPUsYZExQXy3CXVcMDCzAJ4AIgRgISHpSwRnDvYiEQUiVSAdzu9KZKGzVOZvFwP6TbBnZGRx QFBmOLxzCVItVWO8ZHE8KJVpZVPxWT1KChSqOZPsSbMlTRveVIQbMWKjtd7HKXNuOZVgJLL9RrOhIMYq KUDqGGu2jwVwjQEtGOv2VD3CL2VyiqEcXqYSMu5Md3 64UCZcUFWdXp4BE8bgSi6nSAPyGIURAq5DRWn3BQVjKLQsZGccTLShH9PyMvX3MMgzAHXpYXLeRqqcPH A+TLzuAjU5OKWaPCU0ZBCtUSTwNUvmVYJiTIJ1J6HpZXJfLV3nMPZCXs2+CVbnkEHgwUrjYDFRTyQ6Hm QeTTfrYTKRAd9V ID Date Data Source [id number] 01/09/2020 05:44:41 PM EDT [facility] US BREAST INCLUDING AXILLA LIMITED LEFT [id number] RESULTInterpreted by:Anu Canada MDTARGETED LEFT BREAST ULTRASOUNDINDICATION: [...] to see Dr. Red following this exam.BI-RADS 2-caumvowygpMT-EOZV 4A low suspicion abnormality.This document has been electronically signed by Anu Canada MD on 01/09/2020 5:42 PM Name Value Range Interpretation Code Description Data Kia rce(s) Supporting Document(s) ID Date Data Source [id number] 01/09/2020 11:59:00 AM T [facility] Name Value Range Interpretation Code Description Data [facility] rce(s) Supporting Document(s) Progress Note [facility] MURAMr7wOmNJUeWw63/LVOmpDHCex3SxWCstMOf0NQqpOGCzC1UbRLT9mI2rGSZ8OGhZAfQjAsVoAFKn lbm [file] xaIU0rHRAUMy2+NMwgoKGzxOlrDLHKFsT9WQlgIMziZRPCEh9R Procedure Social History Code Duration Value Status Description Data Source(s ) Alcohol intake 02/10/2020 12:00:00 AM EDT Current non-d nusrat of alcohol (finding) completed Current non-drinker of alcohol (finding) [facility] Tobacco use and exposure 02/10/2020 12:00:00 AM EDT Never used co mpleted Never used [facility] Smoking 02/10/2020 12:00:00 AM EDT Never smoker completed Never s [facility] Alcohol intake 01/31/2020 12:00:00 AM EDT Current non-d nusrat of alcohol (finding) completed Current non-drinker of alcohol (finding) [facility] Vital Signs ID Date Data Source [id number] 02/10/2020 10:20:43 AM EDT [facility] Name Value Range Interpretation Code Description Data Source(s) WEIGHT RECORDED 181 lb 181 lb [facility] Body height Measured 66 in 66 in [facility] ID Date Data Source [id number] 02/06/2020 12:37:09 PM EDT [facility] Name Value Range Interpretation Code Description Data Source(s) WEIGHT RECORDED 181 lb 181 lb [facility] Body height Measured 66 in 66 in [facility] WEIGHT RECORDED 181 lb 181 lb [facility] Body height Measured 66 in 66 in [facility] ID Date Data Source [id number] 01/09/2020 11:31:28 AM EDT [facility] Name Value Range Interpretation Code Description Data Source(s) WEIGHT RECORDED 160 lb 160 lb [facility] Body height Measured 67 in 67 in [facility] Patient Treatment Plan of Care Planned Activity Planned Date Details Description Data Source (s) fentaNYL (SUBLIMAZE) (PF) injection 25 mcg 01/31/2020 10:19:25 AM E DT [facility] HYDROmorphone (DILAUDID) injection 0.5 mg 01/31/2020 10:19:25 AM ED T [facility] ondansetron (ZOFRAN) injection 4 mg 01/31/2020 10:19:25 AM EDT [facility] zonisamide 25 MG Oral Capsule [facility]
[2020-06-21 15:04] LABS: BLOOD UREA NITROGEN 10 MG/DL (7-18); CALCIUM LEVEL 8.6 MG/DL (8.5-10.1); CARBON DIOXIDE LEVEL 26 MEQ/L (21-32); CHLORIDE LEVEL 106 MEQ/L (98-107); CREATININE FOR GFR 0.78 MG/DL (0.55-1.30); GLOMERULAR FILTRATION RATE > 60.0 (>60); GLUCOSE, FASTING 92 MG/DL (70-100); HCG, SERUM QUANTITATIVE 1126 MIU/ML; POTASSIUM SERUM 3.8 MEQ/L (3.5-5.1); SODIUM LEVEL 139 MEQ/L (136-145)
--- NOTE | 2020-06-21 15:12 | REP ---
INDICATION: vaginal bleeding, + home preg test, LMP 05/11. COMPARISON: None. TECHNIQUE: Transabdominal an ED probes FINDINGS: Bladder is under filled measuring 2.2 x 2.7 x 2.3 cm. Uterus anteverted and measuring 8.4 x 5.2 x 6.5 cm. Endometrial stripe has a thickness of 16 mm on EV probe. No gestational sac or fluid in the endometrial cavity nor endocervical canal. Small nabothian cyst in the cervix. The right ovary is 5.2 x 4.5 x 5.1 cm with ovarian cyst 4.9 x 4.3 x 3.8 cm. This could also represent a corpus luteum cyst. The left ovary is 3.8 x 1.6 x 3.8 cm. Doppler tracing shows resistive index 0.66 for both ovaries, normal. Trace free fluid in the deep pelvis. No other findings. IMPRESSION: Endometrium is thickened appearance without a gestational sac, fluid in the endometrial cavity or endocervical canal. The right ovary has a 4.9 x 4.3 cm simple cyst or corpus luteum cyst. There is no solid adnexal mass and only trace free fluid in the pelvis. Left ovary unremarkable. Findings may reflect very early there is no sonographic confirmation of at this time in the setting of a reported positive home test. Follow-up hCG and ultrasound and clinically appropriate interval. <Electronically signed by Jaime Ko > 06/21/20 8021
[2020-06-21 15:26] VITALS: BP 141/77
== END 2020-06-21 15:36 | disposition home or self-care (01) ==
LOC: M ED 13:25
DX: O46.91 Antepartum hemorrhage, unspecified, first trimester (principal); O99.341 Other mental disorders complicating pregnancy, first trimester; Z3A.00 Weeks of gestation of pregnancy not specified; Z91.010 Allergy to peanuts

== ENCOUNTER → 2020-06-23 | Outpatient (CLI) | payer OTHER | LOC: M LAB 11:39 | PROVIDERS: ATTEND Physician Assistant Medical | DX: N93.9 Abnormal uterine and vaginal bleeding, unspecified (principal) ==

== ENCOUNTER 2020-07-02 12:36 | Day surgery (SDC) | payer OTHER ==
[~2020-07-02] VITALS: Ht 167.6 cm; Wt 86.4 kg
[~2020-07-02 12:36] MED LIST changes: -MULTTAB20 PO
[2020-07-02] MEDS ORDERED: NS 1,000 ML IV ONE (12:50)
[2020-07-02] MEDS ORDERED: MULTTAB20 PO (13:02)
[2020-07-02 13:25] LABS: BASO # 0.1 10^3/uL (0.0-0.2); BASO % 0.8 % (0.0-1.0); EOS # 0.2 10^3/uL (0.0-0.5); EOS % 2.4 % (0.0-3.0); HEMATOCRIT 38.9 % (36.0-47.0); LYMPH # 2.6 10^3/uL (1.5-5.0); MEAN CORPUSCULAR HEMOGLOBIN 29.7 pg (27.0-33.0); MEAN CORPUSCULAR HGB CONC 33.4 g/dl (32.0-36.5); MEAN CORPUSCULAR VOLUME 88.8 fl (80.0-96.0); MONO # 0.6 10^3/uL (0.0-0.8); MONO % 6.8 % (2.0-8.0); NEUTROPHILS % 58.3 % (36.0-66.0); PLATELET COUNT, AUTOMATED 274 10^3/uL (150-450); RED BLOOD COUNT 4.38 10^6/uL (4.00-5.40); WHITE BLOOD COUNT 8.5 10^3/uL (4.0-10.0)
[2020-07-02 13:49] LABS: RSV AMPLIFICATION NEGATIVE (NEGATIVE)
[2020-07-02 13:51] LABS: ALBUMIN 3.9 GM/DL (3.2-5.2); ALT/SGPT 22 U/L (12-78); BILIRUBIN,TOTAL 0.2 MG/DL (0.2-1.0); BLOOD UREA NITROGEN 11 MG/DL (7-18); CALCIUM LEVEL 8.9 MG/DL (8.5-10.1); CARBON DIOXIDE LEVEL 27 MEQ/L (21-32); CHLORIDE LEVEL 106 MEQ/L (98-107); CREATININE FOR GFR 0.73 MG/DL (0.55-1.30); GLOMERULAR FILTRATION RATE > 60.0 (>60); GLUCOSE, FASTING 91 MG/DL (70-100); SODIUM LEVEL 139 MEQ/L (136-145)
[2020-07-02] MEDS ORDERED: fentaNYL 100 MCG/2 ML INJECTION (J3010) As Ordered ONE (13:56)
[2020-07-02] MEDS ORDERED: LIDOCAINE 2% 100MG/5ML SDV (FOR ANES.) As Ordered ONE (13:56)
[2020-07-02] MEDS ORDERED: ROCURONIUM BROMIDE 50 MG/5 ML VIAL As Ordered ONE (13:56)
[2020-07-02] MEDS ORDERED: ONDANSETRON 4MG/2ML VIAL As Ordered ONE (13:56)
[2020-07-02] MEDS ORDERED: dexameTHASONE 4 MG/ML 1ML VIAL (J1100 PER 1MG) As Ordered ONE (13:56)
[2020-07-02] MEDS ORDERED: KETOROLAC 60MG 2ML VIAL As Ordered ONE (13:56)
[2020-07-02] MEDS ORDERED: MIDAZOLAM INJ 2MG/2ML VIAL (J2250 PER 1MG) As Ordered ONE (13:56)
[2020-07-02] MEDS ORDERED: propofoL 200 MG/20 ML VIAL As Ordered ONE (13:56)
[2020-07-02] MEDS ORDERED: SCOPOLAMINE 1MG TRANSDERMAL PATCH As Ordered ONE (14:37)
[2020-07-02] MEDS ORDERED: BUPIVACAINE HCL 0.25% 30ML VIAL As Ordered ONE (14:48)
[2020-07-02] MEDS ORDERED: KETOROLAC 30 MG/ML 1ML VIAL IV PRN (15:30)
[2020-07-02] MEDS ORDERED: GLYCOPYRROLATE INJ 0.2 MG/ML 2 ML VIAL As Ordered ONE (15:39)
[2020-07-02] MEDS ORDERED: NEOSTIGMINE 10MG/10ML VIAL (J2710 PER 0.5MG) As Ordered ONE (15:39)
[2020-07-02] MEDS ORDERED: ONDANSETRON 4MG/2ML VIAL IV PRN (16:15)
[2020-07-02] MEDS ORDERED: oxyCODONE 5MG TAB PO PRN ×2 (16:15)
[2020-07-02] MEDS ORDERED: LR 1,000 ML IV SCH (16:15)
[2020-07-02] MEDS ORDERED: METOCLOPRAMIDE INJ 10MG/2ML VIAL (J2765 PER 1) IV PRN (16:15)
[2020-07-02] MEDS: fentaNYL 100 MCG/2 ML INJECTION (J3010) IV PRN ×2 (16:32→16:39)
[2020-07-02 17:45] VITALS: BP 115/63
[2020-07-02] MEDS ORDERED: ACETAMINOPHEN 500 MG TAB PO SCH (22:00)
[2020-07-02] MEDS ORDERED: IBUPROFEN 800 MG TAB PO SCH (22:00)
--- NOTE | 2020-07-14 07:46 | ROOPDOC ---
[facility] Report Of Operation Report of Operation DATE OF PROCEDURE: 07/14/20 PREPROCEDURE DIAGNOSES: right ectopic tubal , right simple ovarian cyst POSTPROCEDURE DIAGNOSES: right ectopic tubal , right simple ovarian cyst, [id number]-[id number] disease, pelvic adhesive disease PROCEDURE: laparoscopic right salpingectomy, right ovarian cystostomy, lysis of pelvic adhesions SURGEON: Octaviano Buckley DO CLINICAL INFORMATION SYSTEMS DIRECTOR: Cha French MD ANESTHESIA: general ESTIMATED BLOOD LOSS: Approximately ___ mL. COMPLICATIONS: none REMARKS: none PROCEDURE NOTE: The risks, benefits, and alteratives of the procedure were discussed and written consent was obtained. The patient was taken to the OR where she was placed under general anesthesia. She was positioned in low lithotomy with her arms tucked. The vagina, abdomen, and perineum were prepped and draped in a sterile fashion. A valdovinos was placed in the bladder. A final time out was performed. The infraumbilical fold was injected with 0.25% marcaine and a 10mm incision was made. A 10mm port was then placed via the direct technique using towel clamps to elevate the abdominal wall. The opening pressure was 5mmHg and there was no trauma below the entry site. The area 2cm superior and medial to the bilateral ASISs was identified via transillumination and direct visualization. 0.25% marcaine was injected and 5mm incisions were made. 5mm ports were placed under direct visualization. An anatomy survey was performed; the liver had [id number]-blazoh adhesions to the anterior abdominal wall, the gallbladder and stomach edges appeared normal. There were filmy adhesions surrounding both fallopian tubes, these were lysed with the ligasure to aid in visualization. The right ovary had an approx 5cm simple ovarian cyst that was incised with the ligasure to aid in visualization, clear fluid was noted and suctioned from the cyst interior. The right fallopian tube had a bulge consistent with the ultrasound identified live ectopic . The ligasure was used to transect the mesosalpinx below the right fallopian tube to the level of the cornua where the tube was truncated. An endocatch was then placed into the 10mm port and the right fallopian tube removed. The surgical site remained hemostatic. The pneumoperitoneum was slowly released and it remained hemostatic, the port sites were removed under direct visualization and they were hemostatic. The umbilical port fascia was closed with 0-vicryl in a running fashion. The port sites were then reapproximated with 4-0 monocryl and secured with dermabond. There were no complications. The patient tolerated the procedure well and was transfered to the PACU in stable condition. The sponge, lap, and needle counts were correct x2. OCTAVIANO BUCKLEY DO Jul 14, 2020 07:46
== END 2020-07-02 17:50 | disposition home or self-care (01) ==
LOC: M ED 12:36 → M SDC 14:34
PROVIDERS: ATTEND Obstetrics & Gynecology
DX: O00.90 Unspecified ectopic pregnancy without intrauterine pregnancy (principal); N83.201 Unspecified ovarian cyst, right side; K66.0 Peritoneal adhesions (postprocedural) (postinfection)
CPT/HCPCS: 58662; 59151; 76801; 80053; 85025; 86850; 86900; 86901; 87631; 88305; 93976; 96360; 99284; J1100; J1885; J2250; J2405; J2710; J3010

== ENCOUNTER → 2020-07-02 | Outpatient (CLI) | payer OTHER ==
[~2020-07-02] MED LIST changes: +FLUO20CA22 PO; +LEVA1TAB2 PO; +METR-265 PO; +MULTTAB20 PO; +PRAZ2CAP PO; +RIZA10TA58 PO; +VIST50CA PO; +ZONI25CA13 PO
--- NOTE | 2020-07-02 11:55 | REP ---
INDICATION: 1ST TRIMESTER DATING . COMPARISON: 06/21/2020. TECHNIQUE: Real-time sonographic evaluation of pelvis performed utilizing transabdominal technique. FINDINGS: The uterus measures 9.3 x 5.0 x 6.5 cm. Multiple fibroids are seen in the uterus, largest is in the anterior fundus measuring 2.4 x 1.9 x 2.7 cm, another in the posterior uterine body measures 1.5 x 1.0 x 1.3 cm. The endometrial thickness is 3 mm. No intrauterine gestational sac is present. However, a gestational sac is seen in the right adnexa containing a pole with a heart rate of 126 beats per minute. Findings represent a live right adnexal ectopic . The pole is 6 mm corresponding to an estimated gestational age of 6 weeks 3 days. Maternal heart rate is noted to be 76 beats per minute. Right ovary contains a simple cyst 4.2 x 3.2 x 4.4 cm likely representing a corpus luteum. In its entirety the right ovary measures 5.0 x 3.7 x 5.3 cm. Left ovary measures 3.0 x 2.2 x 2.4 cm. There is no evidence of ovarian torsion with duplex Doppler evaluation. No free fluid is seen in the pelvis. IMPRESSION: Live right adnexal ectopic , estimated gestational age 6 weeks 3 days as discussed in detail above. No free fluid identified. No evidence of ovarian torsion. <Electronically signed by Rey Palma > 07/02/20 [id number]
--- NOTE | 2020-07-02 16:34 | ROOPDOC ---
[facility] Report Of Operation Report of Operation DATE OF PROCEDURE: 07/02/20 PREPROCEDURE DIAGNOSES: ectopic , bilateral hydrosalpinx POSTPROCEDURE DIAGNOSES: right tubal ectopic , right simple ovarian cyst, [id number], pelvic adhesive disease PROCEDURE: right salpingectomy, right ovarian cystostomy, lysis of pelvic adhesions SURGEON: Octaviano Buckley DO BAG TESTER: Cha French MD ANESTHESIA: general ESTIMATED BLOOD LOSS: Approximately 25 mL. COMPLICATIONS: none REMARKS: none PROCEDURE NOTE: The risks, benefits, and alternatives of the procedure were discussed and written consent was obtained. Pre-operative the patient received scopolamine and tylenol. The patient was taken to the OR and placed under general anesthesia. She was positioned in low lithotomy in the yellow fins with her arms tucked. A final time out was performed. A valdovinos was placed in the bladder. An operative speculum was utilized to visualize the cervix and a single tooth tenauclum was placed on the anterior lip of the cervix. An accorn uterine manipulator was placed and the speculum removed. 0.25% marcaine was injected into the supraumbilical fold and a 10mm incision was made. A 10mm port was then placed using the direct technique. The opening pressure was 5mmHg and there was no trauma below the entry site. The area 2cm superior and medial to the bilateral ASISs was identified via transillumination and 0.25% marcaine injected. 5mm incisions were made and 5mm ports placed under direct visualization. An anatomy survey was performed; the liver had significant adhesive disease to the anterior abdominal wall. There was adhesive disease from the anterior uterus and right adnexa to the anterior abdominal wall. The right fallopian tube had a bulge near the fimbriated end that was clinically consistent with an ectopic . The right ovary had an approx 4cm simple ovarian cyst. The left ovary appeared normal. Other than the adhesive disease, the uterus appeared normal. The left fallopian tube did appear irregular in shape, consistent with likely tubal disease but did not appear inflamed or infected at this time. There was approx 25cc of blood in the posterior cul-de-sac. The blood was suctioned with the suction water and fire technician. Using the ligasure a cystostomy was made in the right simple cyst and the fluid suctioned to facilitate visibility. The right fallopian tube was freed from the bowel and anterior abdominal wall via lysis of pelvic adhesions with the ligasure. The tube was grasped at the fimbriated end and the mesosalpinx transected with the ligasure to the level of the cornua. The tube was then truncated with the ligasure. An endocatch bag was introduced through the umbilical port and the tube removed in-tact. The surgical site was visualized and was hemostatic. The bilateral lower quadrant ports were removed under direct visualization and were hemostatic. The pneumoperitoneum was released. The umbilical port was removed and the fascia closed with 0-vicryl in a running fashion. The skin was then closed with 4-0 monocryl and secured with dermabond. The valdovinos was removed from the bladder and the speculum replaced. The accorn and tenaculum were removed and the puncture sites were hemostatic. The speculum was removed. The sponge, lap, and needle counts were correct x2. There were no complications. The patient was transferred to the PACU in stable condition. OCTAVIANO BUCKLEY DO Jul 02, 2020 16:34
== END ==
LOC: M RAD 10:48
PROVIDERS: ATTEND Obstetrics & Gynecology
DX: O00.90 Unspecified ectopic pregnancy without intrauterine pregnancy (principal); Z3A.01 Less than 8 weeks gestation of pregnancy

== ENCOUNTER 2020-09-07 09:36 | Emergency (ER) | payer OTHER ==
[~2020-09-07] VITALS: Ht 170.2 cm; Wt 88.2 kg
[~2020-09-07 09:36] MED LIST changes: +MULTTAB20 PO
[2020-09-07 09:43] VITALS: BP 140/67
[2020-09-07] MEDS ORDERED: TRAZ-252 (09:47)
== END 2020-09-07 13:35 | disposition home or self-care (01) ==
LOC: M ED 09:36
DX: U07.1 COVID-19 (principal)